=== PATIENT | female | born 1940 | race Caucasian/White ===

== ENCOUNTER 2019-09-02 23:06 | Emergency (ER) | payer OTHER ==
[~2019-09-02] VITALS: Ht 154.9 cm; Wt 111.6 kg
[2019-09-02 23:44] LABS: Basophils # (auto) 0.1 10 ^3/uL (0-0.2); Eosinophils # (auto) 0.2 10 ^3/uL (0-0.8); Hematocrit 49.4 % (36.0-46.0); Lymphocytes # (auto) 2.4 10 ^3/uL (0.4-5.4); Lymphocytes % (auto) 20.7 % (10.0-50.0); Mean Corpuscular Hemoglobin 28.6 pg (28.0-32.0); Mean Corpuscular Hgb Conc. 32.4 g/dL (32.0-36.0); Mean Corpuscular Volume 88.2 fL (80.0-100.0); Monocytes # (auto) 1.1 10 ^3/uL (0-1.3); Monocytes % (auto) 9.5 % (0.0-12.0); Neutrophils # (auto) 7.7 10 ^3/uL (1.6-8.6); Neutrophils % (auto) 66.8 % (37.0-80.0); Platelet Count (auto) 143 10^3/uL (140-450); Red Cell Distribution Width 14.7 % (11.8-14.3); White Blood Cell 11.6 10^3/uL (4.4-10.8)
[2019-09-02] MEDS ORDERED: dilTIAZem 25 MG/5 ML VIAL IV ONE (23:45)
[2019-09-03 00:02] LABS: Potassium 3.2 mmol/L (3.5-5.1)
[2019-09-03 00:03] LABS: Albumin 3.1 g/dL (3.4-5.0); Calcium 8.2 mg/dL (8.5-10.1)
[2019-09-03 00:07] LABS: Bilirubin, Total 0.8 mg/dL (0.2-1.0); Total Protein 7.3 g/dL (6.4-8.2)
[2019-09-03] MEDS ORDERED: POTASSIUM EFFERVESENT TAB 25 MEQ PO ONE (00:15)
[2019-09-03] MEDS ORDERED: InsuLIN REG 1unit/0.01ml Soln (100units/ml) IV ONE (00:30)
[2019-09-03] MEDS ORDERED: METOPROLOL TARTRATE 1MG/1ML-5ML VIAL IV ONE (01:30)
[2019-09-03 01:50] VITALS: BP 141/90
[2019-09-03] MEDS ORDERED: METOPROLOL TARTRATE 25 MG TAB PO ONE (02:15)
== END 2019-09-03 02:14 | disposition home or self-care (01) ==
LOC: ER 23:08
DX: R00.2 Palpitations (principal); R00.0 Tachycardia, unspecified; E87.6 Hypokalemia; E11.65 Type 2 diabetes mellitus with hyperglycemia
CPT/HCPCS: 36415; 71045; 80053; 82962; 83735; 83880; 84443; 84484; 85025; 96374; 96375; 99285; J1815

== ENCOUNTER 2019-11-29 10:42 | Inpatient (IN) | payer OTHER ==
[~2019-11-29] VITALS: Ht 154.9 cm; Wt 99.0 kg
[2019-11-29 11:31] LABS: Basophils # (auto) 0.1 10 ^3/uL (0-0.2); Basophils % (auto) 0.7 % (0.0-2.0); Eosinophils # (auto) 0.1 10 ^3/uL (0-0.8); Eosinophils % (auto) 0.6 % (0.0-7.0); Hematocrit 43.9 % (36.0-46.0); Hemoglobin 14.2 g/dL (12.2-16.2); Lymphocytes # (auto) 0.9 10 ^3/uL (0.4-5.4); Lymphocytes % (auto) 8.3 % (10.0-50.0); Mean Corpuscular Hemoglobin 28.7 pg (28.0-32.0); Mean Corpuscular Hgb Conc. 32.3 g/dL (32.0-36.0); Mean Corpuscular Volume 88.8 fL (80.0-100.0); Monocytes # (auto) 0.8 10 ^3/uL (0-1.3); Monocytes % (auto) 7.4 % (0.0-12.0); Neutrophils # (auto) 8.6 10 ^3/uL (1.6-8.6); Platelet Count (auto) 118 10^3/uL (140-450); Red Blood Cells 4.94 10^6/uL (4.0-5.20); Red Cell Distribution Width 15.1 % (11.8-14.3); White Blood Cell 10.4 10^3/uL (4.4-10.8)
[2019-11-29 11:49] LABS: INR 1.03 (0.9-1.15)
[2019-11-29 11:52] LABS: Albumin 3.1 g/dL (3.4-5.0); Anion Gap 8 (5-15); Blood Urea Nitrogen 25 mg/dL (7-18); Calcium 8.5 mg/dL (8.5-10.1); Carbon Dioxide 23 mmol/L (21-32); Chloride 107 mmol/L (98-107); Glucose 228 mg/dL (74-106); Sodium 138 mmol/L (136-145)
[2019-11-29 11:59] LABS: Alanine Aminotransferase 24 U/L (13-56); Alkaline Phosphatase 138 U/L (45-117); Aspartate Aminotransferase 19 U/L (15-37); BUN/Creatinine Ratio 20.3; Bilirubin, Total 0.8 mg/dL (0.2-1.0); GFR African American 54 mL/min; GFR Non-African American 45 mL/min
[2019-11-29] MEDS ORDERED: IOHEXOL 350 MG/ML 100ML IJ ONE (14:19)
[2019-11-29] MEDS ORDERED: LABETALOL HCL 5 MG/ML 4ML SYRINGE IV PRN (17:30)
[2019-11-29] MEDS ORDERED: DEXTROSE (50%) 50ML SYRG IV PRN (17:30)
[2019-11-29] MEDS ORDERED: NITROGLYCERIN 0.4 MG SL TAB SL PRN (17:30)
[2019-11-29] MEDS: ACCU-CHEK COMFORT CURVE STRIP VI SCH ×2 (19:50→23:47)
[2019-11-29] MEDS: InsuLIN REG 1unit/0.01ml Soln (100units/ml) SC SCH ×2 (19:50→23:53)
[2019-11-30] MEDS: InsuLIN REG 1unit/0.01ml Soln (100units/ml) SC SCH ×5 (04:00→20:00)
[2019-11-30] MEDS: ACCU-CHEK COMFORT CURVE STRIP VI SCH ×5 (04:00→20:00)
[2019-11-30 07:49] LABS: Basophils # (auto) 0.1 10 ^3/uL (0-0.2); Basophils % (auto) 0.7 % (0.0-2.0); Eosinophils # (auto) 0.2 10 ^3/uL (0-0.8); Eosinophils % (auto) 3.2 % (0.0-7.0); Hematocrit 38.3 % (36.0-46.0); Hemoglobin 12.4 g/dL (12.2-16.2); Lymphocytes # (auto) 1.4 10 ^3/uL (0.4-5.4); Mean Corpuscular Hgb Conc. 32.5 g/dL (32.0-36.0); Mean Corpuscular Volume 89.5 fL (80.0-100.0); Monocytes # (auto) 0.8 10 ^3/uL (0-1.3); Monocytes % (auto) 10.7 % (0.0-12.0); Neutrophils % (auto) 66.4 % (37.0-80.0); Platelet Count (auto) 97 10^3/uL (140-450); Red Blood Cells 4.28 10^6/uL (4.0-5.20); Red Cell Distribution Width 14.8 % (11.8-14.3); White Blood Cell 7.5 10^3/uL (4.4-10.8)
[2019-11-30 07:53] LABS: Albumin 2.6 g/dL (3.4-5.0); Potassium 3.8 mmol/L (3.5-5.1)
[2019-11-30 08:00] LABS: BUN/Creatinine Ratio 20.6; Bilirubin, Total 0.9 mg/dL (0.2-1.0); Magnesium 2.2 mg/dL (1.6-2.6); Phosphorus 3.1 mg/dL (2.5-4.90); Total Protein 5.8 g/dL (6.4-8.2)
--- NOTE | 2019-11-30 08:40 | NUR ---
MS admit from ER KNOUSE,ELIESER admitted to tele/MS no SBAR was received. Patient oriented to GEE JASSO,RN primary RN, unit,274 room,B bed, and unit policies regarding patient care and visiting hours. Patient weighed by bedscale and encouraged to call if they need something. All questions and concerns addressed, patient verbalized understanding. Note:
[2019-11-30 10:32] VITALS: BP 164/70
--- NOTE | 2019-11-30 12:38 | NUR ---
Doctor Emmanuel rounding.
[2019-11-30 12:45] VITALS: BP 150/63
[2019-11-30 17:00] VITALS: BP 155/75
[2019-11-30 22:00] VITALS: BP 163/80
--- NOTE | 2019-11-30 22:02 | NUR ---
1900. RREPORT GIVEN ON PATIENT. ASSUMED CARE. PATIENT SEEN IN ROOM. SITTING ON HER BED. DENIES PAIN.NO NOSE BLEED OBSERVED. MONITORING CONTINUES.
[2019-12-01] MEDS: ACCU-CHEK COMFORT CURVE STRIP VI SCH ×3 (00:24→08:26)
--- NOTE | 2019-12-01 01:58 | NUR ---
PATIENT SEEN. FEELS WELL. NO NOSE BLEEDING.
[2019-12-01] MEDS: InsuLIN REG 1unit/0.01ml Soln (100units/ml) SC SCH ×3 (04:16→08:26)
[2019-12-01 05:00] VITALS: BP 130/45
[2019-12-01 07:35] VITALS: BP 156/64
--- NOTE | 2019-12-01 07:50 | NUR ---
OPENING SHIFT NOTE: PATIENT RESTING IN BED, A/OX4. THIS RN RE-ORIENTED PATIENT AND UPDATED ON PLAN OF CARE. RESPIRATIONS EVEN AND UNLABORED EDUCATED ABOUT NEED TO REMOVED OXYGEN PRIOR TO GOING HOME, SO PATIENT WILL NEED TO BE ASSESSED FOR NECESSITY ON DISCHARGE. CALL LIGHT WITHIN REACH, BED ALARM AND FALL PRECAUTIONS IN PLACE. WILL CONTINUE TO MONITOR.
--- NOTE | 2019-12-01 08:34 | NUR ---
ROOM AIR: PATIENT ATE BREAKFAST ON ROOM AIR, TOLERATING WELL, EDUCATED ON ABG AND HOME O2 QUALIFICATIONS.
--- NOTE | 2019-12-01 08:40 | NUR ---
ROOM AIR ABG DRAWN ORDERED. RESULTS REPORTED TO DR. Uli FITCH.
--- NOTE | 2019-12-01 09:20 | NUR ---
MD Uli FITCH ROUNDING. PATIENT STABLE FOR DC. DOES NOT QUALIFY FOR HOME O2. PATIENT VERBALIZED UNDERSTANDING.
--- NOTE | 2019-12-01 11:13 | NUR ---
DISCHARGE: PATIENT DISCHARGED HOME. ALL EDUCATION GIVEN, PATIENT VERBALIZED UNDERSTANDING INSTRUCTIONS. IV REMOVED, MANUAL PRESSURE APPLIED. PATIENT TAKEN DOWN TO PRIVATE AUTO VIA WHEELCHAIR WITH ALL BELONGINGS.
== END 2019-12-01 11:30 | disposition home or self-care (01) | DRG 151 ==
LOC: ER 10:42 → OVERFLOW 10:43 → WEST WING 11-30 08:25
PROVIDERS: ATTEND Family Medicine
DX: R04.0 Epistaxis (principal); R60.9 Edema, unspecified; D69.6 Thrombocytopenia, unspecified; E11.9 Type 2 diabetes mellitus without complications; I10 Essential (primary) hypertension; I25.10 Atherosclerotic heart disease of native coronary artery without angina pectoris; Z96.659 Presence of unspecified artificial knee joint; H26.9 Unspecified cataract; Z79.82 Long term (current) use of aspirin; Z90.710 Acquired absence of both cervix and uterus; Z79.84 Long term (current) use of oral hypoglycemic drugs
CPT/HCPCS: 36415; 36600; 71046; 71275; 80053; 82805; 82962; 83036; 83735; 83880; 84100; 84484; 85025; 85379; 85610; 85730; 93005; 93970; G0378; J1815; J3490

== ENCOUNTER 2021-06-25 15:05 | Emergency (ER) | payer OTHER ==
[~2021-06-25] VITALS: Ht 154.9 cm; Wt 99.8 kg
[2021-06-25 15:56] LABS: Basophils # (auto) 0.1 10 ^3/uL (0-0.2); Basophils % (auto) 1.1 % (0.0-2.0); Eosinophils # (auto) 0.1 10 ^3/uL (0-0.8); Eosinophils % (auto) 1.1 % (0.0-7.0); Hematocrit 50.3 % (36.0-46.0); Hemoglobin 16.4 g/dL (12.2-16.2); Lymphocytes # (auto) 2.1 10 ^3/uL (0.4-5.4); Lymphocytes % (auto) 17.5 % (10.0-50.0); Mean Corpuscular Hemoglobin 28.8 pg (28.0-32.0); Mean Corpuscular Hgb Conc. 32.6 g/dL (32.0-36.0); Mean Corpuscular Volume 88.5 fL (80.0-100.0); Monocytes # (auto) 0.9 10 ^3/uL (0-1.3); Monocytes % (auto) 7.7 % (0.0-12.0); Neutrophils # (auto) 8.5 10 ^3/uL (1.6-8.6); Neutrophils % (auto) 72.6 % (37.0-80.0); Red Blood Cells 5.69 10^6/uL (4.0-5.20); Red Cell Distribution Width 15.2 % (11.8-14.3); White Blood Cell 11.7 10^3/uL (4.4-10.8)
[2021-06-25] MEDS ORDERED: dilTIAZem 25 MG/5 ML VIAL IV ONE (16:00)
[2021-06-25] MEDS ORDERED: ASPirin 81 mg TAB PO ONE (16:00)
[2021-06-25 16:22] LABS: Calcium 8.4 mg/dL (8.5-10.1); Potassium 4.9 mmol/L (3.5-5.1)
[2021-06-25 16:32] LABS: INR 1.16 (0.9-1.15); Partial Thromboplastin Time 25.7 sec (23.6-33.0)
[2021-06-25 16:33] LABS: BUN/Creatinine Ratio 13.5; Bilirubin, Total 1.1 mg/dL (0.2-1.0); Total Protein 7.1 g/dL (6.4-8.2)
[2021-06-25] MEDS ORDERED: FUROSEMIDE 20 MG/2 ML VIAL IV ONE (17:30)
[2021-06-25] MEDS ORDERED: IOHEXOL 350 MG/ML 100ML IJ ONE (17:31)
[2021-06-25] MEDS ORDERED: SODIUM CHLORIDE 0.9% 500 ML IV ONE (17:45)
[2021-06-25 18:33] LABS: Urine Bacteria MOD /hpf (None Seen); Urine Blood Negative /uL (Negative); Urine Mucus FEW (None Seen); Urine Specific Gravity 1.014 (1.001-1.035); Urine WBC 2 /hpf (0 - 5)
[2021-06-25 20:40] VITALS: BP 128/72
== END 2021-06-25 20:50 | disposition home or self-care (01) ==
LOC: ER 15:05
DX: I47.1 Supraventricular tachycardia (principal); I11.0 Hypertensive heart disease with heart failure; I50.9 Heart failure, unspecified; Z20.822 Contact with and (suspected) exposure to COVID-19
CPT/HCPCS: 36415; 71045; 71275; 80053; 81001; 83880; 84484; 85025; 85379; 85610; 85730; 87426; 93005; 96374; 96375; 99285; J1940; J7040; Q9967

== ENCOUNTER 2021-09-08 21:58 | Emergency (ER) | payer OTHER ==
[~2021-09-08] VITALS: Ht 157.5 cm; Wt 99.8 kg
[2021-09-08 23:06] LABS: Basophils # (auto) 0 10 ^3/uL (0-0.2); Basophils % (auto) 0.5 % (0.0-2.0); Eosinophils # (auto) 0.1 10 ^3/uL (0-0.8); Eosinophils % (auto) 1.3 % (0.0-7.0); Hematocrit 45.8 % (36.0-46.0); Hemoglobin 15.4 g/dL (12.2-16.2); Lymphocytes # (auto) 1.4 10 ^3/uL (0.4-5.4); Lymphocytes % (auto) 19.3 % (10.0-50.0); Mean Corpuscular Hemoglobin 28.7 pg (28.0-32.0); Mean Corpuscular Hgb Conc. 33.7 g/dL (32.0-36.0); Mean Corpuscular Volume 85.1 fL (80.0-100.0); Monocytes # (auto) 0.7 10 ^3/uL (0-1.3); Monocytes % (auto) 9.2 % (0.0-12.0); Neutrophils % (auto) 69.7 % (37.0-80.0); Nucleated Red Blood Cells % 0.1 %; Red Blood Cells 5.38 10^6/uL (4.0-5.20); Red Cell Distribution Width 14.5 % (11.8-14.3); White Blood Cell 7.1 10^3/uL (4.4-10.8)
[2021-09-08 23:35] LABS: Albumin 2.9 g/dL (3.4-5.0); Calcium 8.3 mg/dL (8.5-10.1); Potassium 4.1 mmol/L (3.5-5.1)
[2021-09-08 23:40] LABS: BUN/Creatinine Ratio 15.5; Bilirubin, Total 0.6 mg/dL (0.2-1.0); Total Protein 6.5 g/dL (6.4-8.2)
[2021-09-09] MEDS ORDERED: IOHEXOL 350 MG/ML 100ML IJ ONE (02:14)
[2021-09-09] MEDS ORDERED: AZITHROMYCIN 500MG/ 250ML 250 ML IV ONE (11:30)
[2021-09-09] MEDS ORDERED: ZINC SULFATE 220mg CAP or TAB PO ONE (11:30)
[2021-09-09] MEDS ORDERED: methylPREDNISolone SOD SUCC 125 MG/2 ML VL IV ONE (11:30)
[2021-09-09] MEDS ORDERED: ASCORBIC ACID 500 MG TAB PO ONE (11:30)
[2021-09-09] MEDS ORDERED: CHOLECALCIFEROL (VITD3) 2,000 UNIT CAP/TAB PO ONE (11:30)
[2021-09-09] MEDS ORDERED: cefTRIAXone 1GM/50ML D5W 50 ML IV ONE (11:30)
[2021-09-09] MEDS ORDERED: ONDANSETRON HCL 4 MG/2 ML VIAL IV ONE (13:00)
[2021-09-09 17:18] VITALS: BP 159/76
== END 2021-09-09 17:45 | disposition short-term general hospital (02) ==
LOC: ER 21:58 → EDUNIT# 21:58 → ER 09-09 17:45
DX: U07.1 COVID-19 (principal); R06.03 Acute respiratory distress; R09.02 Hypoxemia; I10 Essential (primary) hypertension; E11.9 Type 2 diabetes mellitus without complications
CPT/HCPCS: 36415; 71045; 71275; 80053; 83880; 84484; 85025; 85379; 87426; 93005; 96365; 96366; 96367; 96375; 99285; J0456; J0696; J2405; J2930; Q9967

== ENCOUNTER 2022-06-01 08:52 | Emergency (ER) | payer OTHER ==
[~2022-06-01] VITALS: Ht 154.9 cm; Wt 120.3 kg
[2022-06-01 09:40] LABS: INR 1.02 (0.9-1.15); Partial Thromboplastin Time 25.7 sec (24.6-33.4)
[2022-06-01 09:47] LABS: Basophils # (auto) 0.1 10 ^3/uL (0-0.2); Basophils % (auto) 0.8 % (0.0-2.0); Eosinophils # (auto) 0.3 10 ^3/uL (0-0.8); Eosinophils % (auto) 3.4 % (0.0-7.0); Hematocrit 49.3 % (36.0-46.0); Hemoglobin 15.6 g/dL (12.2-16.2); Lymphocytes # (auto) 1.8 10 ^3/uL (0.4-5.4); Lymphocytes % (auto) 19.1 % (10.0-50.0); Mean Corpuscular Hemoglobin 28.8 pg (28.0-32.0); Mean Corpuscular Hgb Conc. 31.8 g/dL (32.0-36.0); Mean Corpuscular Volume 90.6 fL (80.0-100.0); Monocytes # (auto) 0.8 10 ^3/uL (0-1.3); Monocytes % (auto) 8.6 % (0.0-12.0); Neutrophils # (auto) 6.6 10 ^3/uL (1.6-8.6); Neutrophils % (auto) 68.1 % (37.0-80.0); Nucleated Red Blood Cells % 0.1 %; Red Blood Cells 5.43 10^6/uL (4.0-5.20); Red Cell Distribution Width 15.5 % (11.8-14.3); White Blood Cell 9.7 10^3/uL (4.4-10.8)
[2022-06-01] MEDS ORDERED: ASPirin 325 MG TAB PO ONE (11:30)
[2022-06-01 14:35] LABS: Magnesium 2.3 mg/dL (1.6-2.6)
[2022-06-01 14:45] LABS: Bilirubin, Total 0.8 mg/dL (0.2-1.0); Potassium 3.6 mmol/L (3.5-5.1); Total Protein 6.5 g/dL (6.4-8.2)
[2022-06-01 14:46] LABS: Calcium 8.6 mg/dL (8.5-10.1)
[2022-06-01 14:47] LABS: Albumin 3.3 g/dL (3.4-5.0)
[2022-06-01 20:58] VITALS: BP 175/74
== END 2022-06-01 21:08 | disposition short-term general hospital (02) ==
LOC: ER 08:52
DX: I63.9 Cerebral infarction, unspecified (principal); I10 Essential (primary) hypertension; E11.9 Type 2 diabetes mellitus without complications; Z90.710 Acquired absence of both cervix and uterus; Z20.822 Contact with and (suspected) exposure to COVID-19
CPT/HCPCS: 36415; 70450; 70496; 71045; 80053; 82962; 83735; 83880; 84484; 85025; 85610; 85730; 87426; 93005; 99285; Q9967

== ENCOUNTER 2022-07-25 10:00 | Inpatient (IN) | payer OTHER ==
[~2022-07-25] VITALS: Ht 154.9 cm; Wt 127.2 kg
[~2022-07-25 10:00] MED LIST: ATEN50TA PO; ATOR40TA52 PO; AZIT250T8 PO; CAR125T PO; CLOP75TA70 PO; DILT60TA2 PO; FUR20T PO; GABA300C10 PO; INSREG3 SC; LOSA-39 PO; METH4PAK PO; MONT-8 PO; POTA-264 PO
[2022-07-25] MEDS ORDERED: ALBUTEROL SULF 2.5 MG/0.5ML(0.5%) NEB SOLN NEB ONE (10:45)
[2022-07-25] MEDS ORDERED: IPRATROPIUM BROM 0.5 MG/2.5ML INH SOL NEB ONE (10:45)
[2022-07-25] MEDS ORDERED: FUROSEMIDE 100 MG/10ML VIAL IV ONE (11:15)
[2022-07-25 11:24] LABS: INR 1.1 (0.9-1.15); Partial Thromboplastin Time 22.1 sec (24.6-33.4)
[2022-07-25 11:27] LABS: Mean Corpuscular Hgb Conc. 31.9 g/dL (32.0-36.0)
[2022-07-25 11:29] LABS: Hematocrit 52.4 % (36.0-46.0); Hemoglobin 16.7 g/dL (12.2-16.2); Mean Corpuscular Hemoglobin 27.8 pg (28.0-32.0); Mean Corpuscular Volume 87.1 fL (80.0-100.0); Red Blood Cells 6.02 10^6/uL (4.0-5.20)
[2022-07-25 11:40] LABS: Calcium 8.8 mg/dL (8.5-10.1); Potassium 4.9 mmol/L (3.5-5.1)
[2022-07-25 11:43] LABS: BUN/Creatinine Ratio 41.1 (10.0-20.0); Total Protein 6.2 g/dL (6.4-8.2)
[2022-07-25 11:48] LABS: White Blood Cell 32.3 10^3/uL (4.4-10.8)
[2022-07-25 11:49] LABS: Band Neutrophils % (manual) 0; Basophils % (manual) 0 (0.0-2.0); Blast Cells 0; Eosinophils % (manual) 0 (0-7); Metamyelocytes % 0; Myelocytes % 0; Promyelocytes % 0; Reactive Lymphocytes 0
[2022-07-25 11:59] LABS: Lymphocytes % (manual) 4 (10.0-50.0); Monocytes % (manual) 8 (0-12)
[2022-07-25] MEDS ORDERED: cefTRIAXone 1GM/50ML D5W 50 ML IV ONE (12:00)
[2022-07-25] MEDS ORDERED: HYDROcodone-ACET 10/325MG TAB PO ONE (12:00)
[2022-07-25] MEDS ORDERED: InsuLIN REG 1unit/0.01ml Soln (100units/ml) IV ONE (12:15)
[2022-07-25] MEDS ORDERED: InsuLIN REG 1unit/0.01ml Soln (100units/ml) SC ONE (12:30)
[2022-07-25 15:26] LABS: Lactic Acid w/Reflex 2.2 mmol/L (0.4-2.0)
[2022-07-25] MEDS ORDERED: MORPHINE SULFATE INJ 2 MG/ml SYRG IV PRN (17:45)
[2022-07-25] MEDS ORDERED: ACETAMINOPHEN 325 MG TAB PO PRN (17:45)
[2022-07-25] MEDS ORDERED: NITROGLYCERIN 0.4 MG SL TAB SL PRN (17:45)
[2022-07-25] MEDS ORDERED: ONDANSETRON HCL 4 MG/2 ML VIAL IV PRN (17:45)
[2022-07-25] MEDS ORDERED: DOCUSATE SOD 100 MG CAP PO PRN (17:45)
[2022-07-25] MEDS: HYDROcodone-ACET 5/325MG TAB PO PRN ×2 (17:51→21:59)
[2022-07-25] MEDS ORDERED: DEXTROSE (50%) 50ML SYRG IV PRN (18:00)
[2022-07-25] MEDS: IPRATROPIUM BROM 0.5 MG/2.5ML INH SOL NEB PRN (19:35)
[2022-07-25] MEDS: ALBUTEROL SULF 2.5 MG/0.5ML(0.5%) NEB SOLN NEB PRN (19:35)
[2022-07-25 21:33] VITALS: BP 155/63
[2022-07-25] MEDS: SODIUM CHLOR 0.9% PF (SALINE LOCK) 10ML VIAL/SYR IV SCH (21:49)
[2022-07-25] MEDS: ATORVASTATIN 20 MG TAB PO SCH (21:52)
[2022-07-25] MEDS: methylPREDNISolone SOD SUCC 40 MG/ML VL IV SCH (21:52)
[2022-07-25] MEDS: dilTIAZem HCL 60 MG TAB PO SCH (21:52)
[2022-07-25] MEDS: InsuLIN REG 1unit/0.01ml Soln (100units/ml) SC SCH (21:54)
[2022-07-25] MEDS: ACCU-CHEK COMFORT CURVE STRIP VI SCH (21:55)
[2022-07-25] MEDS ORDERED: CARVEDILOL 12.5 MG TAB PO SCH (22:00)
[2022-07-26] MEDS ORDERED: FUROSEMIDE 20 MG/2 ML VIAL IV SCH (06:00)
[2022-07-26] MEDS: ALBUTEROL SULF 2.5 MG/0.5ML(0.5%) NEB SOLN NEB PRN ×4 (06:06→18:34)
[2022-07-26] MEDS: ACCU-CHEK COMFORT CURVE STRIP VI SCH ×4 (06:15→23:02)
[2022-07-26] MEDS: SODIUM CHLOR 0.9% PF (SALINE LOCK) 10ML VIAL/SYR IV SCH ×3 (06:15→23:00)
[2022-07-26] MEDS: IPRATROPIUM BROM 0.5 MG/2.5ML INH SOL NEB PRN ×4 (06:16→18:34)
[2022-07-26 06:25] LABS: Potassium 4.7 mmol/L (3.5-5.1)
[2022-07-26 06:32] LABS: Hemoglobin 15.7 g/dL (12.2-16.2)
[2022-07-26 06:36] LABS: Albumin 2.3 g/dL (3.4-5.0); BUN/Creatinine Ratio 39.9 (10.0-20.0); Calcium 8.3 mg/dL (8.5-10.1); Total Protein 5.6 g/dL (6.4-8.2)
[2022-07-26] MEDS: InsuLIN REG 1unit/0.01ml Soln (100units/ml) SC SCH ×5 (06:37→23:07)
[2022-07-26 06:38] LABS: Hematocrit 47.4 % (36.0-46.0); Mean Corpuscular Hemoglobin 28.1 pg (28.0-32.0); Red Blood Cells 5.58 10^6/uL (4.0-5.20); Red Cell Distribution Width 14.5 % (11.8-14.3)
[2022-07-26 06:42] LABS: White Blood Cell 31.4 10^3/uL (4.4-10.8)
[2022-07-26 06:43] LABS: Basophils % (manual) 0 (0.0-2.0); Blast Cells 0; Eosinophils % (manual) 0 (0-7); Metamyelocytes % 0; Myelocytes % 0; Promyelocytes % 0; Reactive Lymphocytes 0
[2022-07-26] MEDS: HYDROcodone-ACET 5/325MG TAB PO PRN ×4 (07:05→23:29)
[2022-07-26 08:55] LABS: Band Neutrophils % (manual) 10; Lymphocytes % (manual) 2 (10.0-50.0); Monocytes % (manual) 6 (0-12)
[2022-07-26] MEDS: cefTRIAXone 1GM/50ML D5W 50 ML IV SCH (09:55)
[2022-07-26] MEDS: AZITHROMYCIN 500MG/ 250ML 250 ML IV SCH (09:55)
[2022-07-26] MEDS: GABAPENTIN 300 MG CAP PO SCH (09:57)
[2022-07-26] MEDS: CLOPIDOGREL BISULFATE 75 MG TAB PO SCH (09:58)
[2022-07-26] MEDS ORDERED: FUROSEMIDE 20 MG TAB PO SCH (10:00)
[2022-07-26] MEDS ORDERED: PANTOPRAZOLE 40 MG/10 ML VIAL INJ IV SCH (10:00)
[2022-07-26] MEDS ORDERED: LOSARTAN POTASSIUM 50 MG TAB PO SCH (10:00)
[2022-07-26] MEDS ORDERED: ATENOLOL 50 MG TAB PO SCH (10:00)
[2022-07-26] MEDS: dilTIAZem HCL 60 MG TAB PO SCH ×2 (10:04→23:02)
[2022-07-26] MEDS: methylPREDNISolone SOD SUCC 40 MG/ML VL IV SCH (10:07)
[2022-07-26] MEDS ORDERED: NYSTATIN (MOUTH-THROAT) 500,000 UNITS/5 ML SUSP MT ONE (14:00)
[2022-07-26] MEDS: NYSTATIN (MOUTH-THROAT) 500,000 UNITS/5 ML SUSP MT SCH ×2 (17:19→23:00)
[2022-07-26] MEDS: CARVEDILOL 3.125 MG TAB PO SCH (23:01)
[2022-07-26] MEDS: ATORVASTATIN 20 MG TAB PO SCH (23:02)
[2022-07-27 05:00] VITALS: BP 118/73
[2022-07-27] MEDS: SODIUM CHLOR 0.9% PF (SALINE LOCK) 10ML VIAL/SYR IV SCH ×3 (05:16→21:17)
[2022-07-27] MEDS: NYSTATIN (MOUTH-THROAT) 500,000 UNITS/5 ML SUSP MT SCH ×4 (05:16→21:15)
[2022-07-27] MEDS: ACCU-CHEK COMFORT CURVE STRIP VI SCH ×4 (06:26→21:17)
[2022-07-27] MEDS: InsuLIN REG 1unit/0.01ml Soln (100units/ml) SC SCH ×4 (06:27→21:21)
[2022-07-27] MEDS: HYDROcodone-ACET 5/325MG TAB PO PRN ×3 (06:45→19:43)
[2022-07-27 06:49] LABS: Calcium 8.4 mg/dL (8.5-10.1); Potassium 4.7 mmol/L (3.5-5.1)
[2022-07-27 06:51] LABS: BUN/Creatinine Ratio 37.8 (10.0-20.0)
[2022-07-27 07:13] LABS: Basophils # (auto) 0.1 10 ^3/uL (0-0.2); Basophils % (auto) 0.3 % (0.0-2.0); Eosinophils # (auto) 0 10 ^3/uL (0-0.8); Eosinophils % (auto) 0.1 % (0.0-7.0); Hematocrit 43.8 % (36.0-46.0); Hemoglobin 14.9 g/dL (12.2-16.2); Lymphocytes # (auto) 0.9 10 ^3/uL (0.4-5.4); Lymphocytes % (auto) 3.4 % (10.0-50.0); Mean Corpuscular Hemoglobin 28.5 pg (28.0-32.0); Mean Corpuscular Hgb Conc. 33.9 g/dL (32.0-36.0); Monocytes # (auto) 1.5 10 ^3/uL (0-1.3); Monocytes % (auto) 5.6 % (0.0-12.0); Neutrophils # (auto) 23.6 10 ^3/uL (1.6-8.6); Neutrophils % (auto) 90.6 % (37.0-80.0); Red Blood Cells 5.21 10^6/uL (4.0-5.20); Red Cell Distribution Width 14.4 % (11.8-14.3)
[2022-07-27 09:00] VITALS: BP 128/64
[2022-07-27] MEDS ORDERED: LOSARTAN POTASSIUM 50 MG TAB PO SCH (10:00)
[2022-07-27] MEDS: CARVEDILOL 3.125 MG TAB PO SCH ×2 (10:06→21:17)
[2022-07-27] MEDS: GABAPENTIN 300 MG CAP PO SCH (10:07)
[2022-07-27] MEDS: CLOPIDOGREL BISULFATE 75 MG TAB PO SCH (10:08)
[2022-07-27] MEDS: dilTIAZem HCL 60 MG TAB PO SCH ×2 (10:08→21:25)
[2022-07-27] MEDS: AZITHROMYCIN 500MG/ 250ML 250 ML IV SCH (10:09)
[2022-07-27] MEDS: cefTRIAXone 1GM/50ML D5W 50 ML IV SCH (10:10)
[2022-07-27] MEDS: FUROSEMIDE 20 MG/2 ML VIAL IV SCH (10:12)
[2022-07-27 11:51] LABS: Urine Bacteria FEW /hpf (None Seen); Urine Blood 3+ /uL (Negative); Urine Mucus FEW (None Seen); Urine Specific Gravity 1.015 (1.001-1.035); Urine WBC 7 /hpf (0 - 5)
[2022-07-27 13:00] VITALS: BP 113/72
[2022-07-27 17:00] VITALS: BP 136/67
[2022-07-27 20:00] VITALS: BP 123/74
[2022-07-27] MEDS: ATORVASTATIN 20 MG TAB PO SCH (21:16)
[2022-07-27] MEDS: INSULIN LANTUS (GLARGINE) 1 /0.01ml (100units/ml) SC SCH (21:20)
[2022-07-27 22:00] VITALS: BP 112/59
[2022-07-28] MEDS: HYDROcodone-ACET 5/325MG TAB PO PRN ×5 (00:07→21:04)
[2022-07-28 05:00] VITALS: BP 131/69
[2022-07-28] MEDS: NYSTATIN (MOUTH-THROAT) 500,000 UNITS/5 ML SUSP MT SCH ×4 (05:14→21:26)
[2022-07-28] MEDS: SODIUM CHLOR 0.9% PF (SALINE LOCK) 10ML VIAL/SYR IV SCH ×3 (05:14→21:29)
[2022-07-28 06:06] LABS: Basophils # (auto) 0.1 10 ^3/uL (0-0.2); Basophils % (auto) 0.3 % (0.0-2.0); Eosinophils # (auto) 0.1 10 ^3/uL (0-0.8); Eosinophils % (auto) 0.4 % (0.0-7.0); Hematocrit 46.2 % (36.0-46.0); Hemoglobin 15.7 g/dL (12.2-16.2); Lymphocytes # (auto) 1.6 10 ^3/uL (0.4-5.4); Lymphocytes % (auto) 6.7 % (10.0-50.0); Mean Corpuscular Hemoglobin 28.6 pg (28.0-32.0); Mean Corpuscular Volume 84.1 fL (80.0-100.0); Monocytes # (auto) 2.4 10 ^3/uL (0-1.3); Monocytes % (auto) 9.8 % (0.0-12.0); Neutrophils # (auto) 20.2 10 ^3/uL (1.6-8.6); Neutrophils % (auto) 82.8 % (37.0-80.0); Nucleated Red Blood Cells % 0.1 %; Red Blood Cells 5.49 10^6/uL (4.0-5.20); Red Cell Distribution Width 14.9 % (11.8-14.3); White Blood Cell 24.3 10^3/uL (4.4-10.8)
[2022-07-28 06:19] LABS: Calcium 8.1 mg/dL (8.5-10.1); Potassium 4.6 mmol/L (3.5-5.1)
[2022-07-28] MEDS: ACCU-CHEK COMFORT CURVE STRIP VI SCH ×4 (06:19→21:30)
[2022-07-28 06:21] LABS: BUN/Creatinine Ratio 33.6 (10.0-20.0)
[2022-07-28] MEDS: InsuLIN REG 1unit/0.01ml Soln (100units/ml) SC SCH ×4 (06:24→21:37)
[2022-07-28 09:00] VITALS: BP 121/73
[2022-07-28] MEDS: cefTRIAXone 1GM/50ML D5W 50 ML IV SCH (09:05)
[2022-07-28] MEDS: dilTIAZem HCL 60 MG TAB PO SCH ×2 (09:11→21:27)
[2022-07-28] MEDS: CARVEDILOL 3.125 MG TAB PO SCH (09:12)
[2022-07-28] MEDS: CLOPIDOGREL BISULFATE 75 MG TAB PO SCH (09:12)
[2022-07-28] MEDS: GABAPENTIN 300 MG CAP PO SCH (09:12)
[2022-07-28] MEDS: FUROSEMIDE 20 MG/2 ML VIAL IV SCH (09:13)
[2022-07-28] MEDS: AZITHROMYCIN 500MG/ 250ML 250 ML IV SCH (10:07)
[2022-07-28] MEDS ORDERED: FUROSEMIDE 20 MG/2 ML VIAL IV ONE (10:30)
[2022-07-28 13:00] VITALS: BP 115/65
[2022-07-28 17:00] VITALS: BP 122/67
[2022-07-28 20:00] VITALS: BP 130/83
[2022-07-28] MEDS: ATORVASTATIN 20 MG TAB PO SCH (21:26)
[2022-07-28] MEDS: INSULIN LANTUS (GLARGINE) 1 /0.01ml (100units/ml) SC SCH (21:36)
[2022-07-28 22:00] VITALS: BP 130/83
[2022-07-29] VITALS (8 sets, daily range): BP systolic 117–153; BP diastolic 68–89
[2022-07-29] MEDS: HYDROcodone-ACET 5/325MG TAB PO PRN ×4 (01:22→20:45)
[2022-07-29] MEDS: SODIUM CHLOR 0.9% PF (SALINE LOCK) 10ML VIAL/SYR IV SCH ×3 (05:13→21:26)
[2022-07-29] MEDS: NYSTATIN (MOUTH-THROAT) 500,000 UNITS/5 ML SUSP MT SCH ×4 (05:14→21:27)
[2022-07-29 06:11] LABS: Hematocrit 47.1 % (36.0-46.0); Hemoglobin 15.9 g/dL (12.2-16.2); Mean Corpuscular Hemoglobin 28.6 pg (28.0-32.0); Mean Corpuscular Hgb Conc. 33.8 g/dL (32.0-36.0); Mean Corpuscular Volume 84.8 fL (80.0-100.0); Red Blood Cells 5.55 10^6/uL (4.0-5.20); Red Cell Distribution Width 14.5 % (11.8-14.3)
[2022-07-29 06:25] LABS: BUN/Creatinine Ratio 34.2 (10.0-20.0); Calcium 8.4 mg/dL (8.5-10.1)
[2022-07-29] MEDS: ACCU-CHEK COMFORT CURVE STRIP VI SCH ×4 (06:25→21:32)
[2022-07-29] MEDS: InsuLIN REG 1unit/0.01ml Soln (100units/ml) SC SCH ×6 (06:27→21:31)
[2022-07-29 06:48] LABS: White Blood Cell 30.8 10^3/uL (4.4-10.8)
[2022-07-29 06:49] LABS: Basophils % (manual) 0 (0.0-2.0); Blast Cells 0; Metamyelocytes % 0; Myelocytes % 0; Promyelocytes % 0; Reactive Lymphocytes 0
[2022-07-29] MEDS: CLOPIDOGREL BISULFATE 75 MG TAB PO SCH (09:01)
[2022-07-29 09:02] LABS: Band Neutrophils % (manual) 3; Eosinophils % (manual) 1 (0-7); Lymphocytes % (manual) 6 (10.0-50.0); Monocytes % (manual) 9 (0-12)
[2022-07-29] MEDS: GABAPENTIN 300 MG CAP PO SCH (09:02)
[2022-07-29] MEDS: dilTIAZem HCL 60 MG TAB PO SCH ×2 (09:02→21:30)
[2022-07-29] MEDS: FUROSEMIDE 40 MG/4 ML VIAL IV SCH (09:03)
[2022-07-29] MEDS: AZITHROMYCIN 500MG/ 250ML 250 ML IV SCH (09:04)
[2022-07-29] MEDS: DOXYCYCLINE 100MG/250ML 250 ML IV SCH ×2 (13:10→21:27)
[2022-07-29] MEDS: INSULIN LANTUS (GLARGINE) 1 /0.01ml (100units/ml) SC SCH (21:32)
[2022-07-29] MEDS: ATORVASTATIN 20 MG TAB PO SCH (21:33)
[2022-07-30] VITALS (7 sets, daily range): BP systolic 118–142; BP diastolic 68–86
[2022-07-30] MEDS: HYDROcodone-ACET 5/325MG TAB PO PRN ×3 (03:53→19:55)
[2022-07-30] MEDS: SODIUM CHLOR 0.9% PF (SALINE LOCK) 10ML VIAL/SYR IV SCH ×3 (05:28→21:33)
[2022-07-30] MEDS: NYSTATIN (MOUTH-THROAT) 500,000 UNITS/5 ML SUSP MT SCH ×4 (05:28→21:28)
[2022-07-30 05:53] LABS: Mean Corpuscular Hemoglobin 28.6 pg (28.0-32.0)
[2022-07-30 05:56] LABS: Hematocrit 45.6 % (36.0-46.0); Hemoglobin 15.2 g/dL (12.2-16.2); Mean Corpuscular Hgb Conc. 33.2 g/dL (32.0-36.0); Mean Corpuscular Volume 85.9 fL (80.0-100.0); Red Blood Cells 5.31 10^6/uL (4.0-5.20); Red Cell Distribution Width 14.6 % (11.8-14.3)
[2022-07-30 06:05] LABS: White Blood Cell 33.9 10^3/uL (4.4-10.8)
[2022-07-30 06:06] LABS: Basophils % (manual) 0 (0.0-2.0); Blast Cells 0; Metamyelocytes % 0; Myelocytes % 0; Promyelocytes % 0; Reactive Lymphocytes 0
[2022-07-30 06:10] LABS: BUN/Creatinine Ratio 31.3 (10.0-20.0); Calcium 7.9 mg/dL (8.5-10.1); Potassium 4.1 mmol/L (3.5-5.1)
[2022-07-30] MEDS: ACCU-CHEK COMFORT CURVE STRIP VI SCH ×4 (06:12→21:31)
[2022-07-30] MEDS: InsuLIN REG 1unit/0.01ml Soln (100units/ml) SC SCH ×4 (06:24→21:32)
[2022-07-30] MEDS: DOXYCYCLINE 100MG/250ML 250 ML IV SCH (08:13)
[2022-07-30 08:25] LABS: Band Neutrophils % (manual) 1; Eosinophils % (manual) 1 (0-7); Lymphocytes % (manual) 10 (10.0-50.0); Monocytes % (manual) 2 (0-12)
[2022-07-30] MEDS: GABAPENTIN 300 MG CAP PO SCH (08:28)
[2022-07-30] MEDS: dilTIAZem HCL 60 MG TAB PO SCH ×2 (08:28→21:28)
[2022-07-30] MEDS: FUROSEMIDE 40 MG/4 ML VIAL IV SCH (08:28)
[2022-07-30] MEDS: CLOPIDOGREL BISULFATE 75 MG TAB PO SCH (08:29)
[2022-07-30] MEDS ORDERED: VANCOMYCIN PER PHARMACY 0 MG IV SCH (11:15)
[2022-07-30] MEDS ORDERED: MEROPENEM 1GM IVPB 100 ML IV ONE (12:00)
[2022-07-30] MEDS: VANCOMYCIN 1GM/250ML 250 ML IV SCH (14:12)
[2022-07-30] MEDS: SODIUM CHLORIDE 0.9% 1,000 ML IV SCH (14:19)
[2022-07-30] MEDS: MEROPENEM 1GM IVPB 100 ML IV SCH (19:54)
[2022-07-30] MEDS ORDERED: MEROPENEM 1GM IVPB 100 ML IV SCH (20:00)
[2022-07-30] MEDS: ATORVASTATIN 20 MG TAB PO SCH (21:27)
[2022-07-30] MEDS: INSULIN LANTUS (GLARGINE) 1 /0.01ml (100units/ml) SC SCH (21:32)
[2022-07-31] VITALS (7 sets, daily range): BP systolic 115–142; BP diastolic 67–87
[2022-07-31 05:57] LABS: Hematocrit 42.8 % (36.0-46.0); Mean Corpuscular Hgb Conc. 35.1 g/dL (32.0-36.0); Mean Corpuscular Volume 82.5 fL (80.0-100.0); Red Blood Cells 5.19 10^6/uL (4.0-5.20); Red Cell Distribution Width 14.4 % (11.8-14.3)
[2022-07-31 06:06] LABS: Potassium 3.8 mmol/L (3.5-5.1)
[2022-07-31 06:10] LABS: BUN/Creatinine Ratio 33.3 (10.0-20.0)
[2022-07-31] MEDS: NYSTATIN (MOUTH-THROAT) 500,000 UNITS/5 ML SUSP MT SCH ×4 (06:18→21:58)
[2022-07-31] MEDS: VANCOMYCIN 1GM/250ML 250 ML IV SCH (06:19)
[2022-07-31] MEDS: SODIUM CHLOR 0.9% PF (SALINE LOCK) 10ML VIAL/SYR IV SCH ×3 (06:20→21:58)
[2022-07-31 06:21] LABS: White Blood Cell 34.4 10^3/uL (4.4-10.8)
[2022-07-31] MEDS: ACCU-CHEK COMFORT CURVE STRIP VI SCH ×4 (06:21→21:59)
[2022-07-31 06:23] LABS: Basophils % (manual) 0 (0.0-2.0); Blast Cells 0; Eosinophils % (manual) 0 (0-7); Myelocytes % 0; Promyelocytes % 0; Reactive Lymphocytes 0
[2022-07-31] MEDS: InsuLIN REG 1unit/0.01ml Soln (100units/ml) SC SCH ×4 (06:27→22:09)
[2022-07-31] MEDS: SODIUM CHLORIDE 0.9% 1,000 ML IV SCH (07:15)
[2022-07-31] MEDS: HYDROcodone-ACET 5/325MG TAB PO PRN ×2 (08:24→22:21)
[2022-07-31] MEDS: GABAPENTIN 300 MG CAP PO SCH (08:25)
[2022-07-31] MEDS: dilTIAZem HCL 60 MG TAB PO SCH ×2 (08:25→21:59)
[2022-07-31] MEDS: CLOPIDOGREL BISULFATE 75 MG TAB PO SCH (08:25)
[2022-07-31 08:27] LABS: Band Neutrophils % (manual) 7; Lymphocytes % (manual) 5 (10.0-50.0); Metamyelocytes % 2; Monocytes % (manual) 10 (0-12)
[2022-07-31] MEDS: MEROPENEM 1GM IVPB 100 ML IV SCH ×2 (09:23→21:58)
[2022-07-31] MEDS: ALBUTEROL SULF 2.5 MG/0.5ML(0.5%) NEB SOLN NEB PRN (13:44)
[2022-07-31] MEDS: IPRATROPIUM BROM 0.5 MG/2.5ML INH SOL NEB PRN (13:44)
[2022-07-31] MEDS: ALBUTEROL SULF 2.5 MG/0.5ML(0.5%) NEB SOLN NEB SCH (18:40)
[2022-07-31] MEDS: IPRATROPIUM BROM 0.5 MG/2.5ML INH SOL NEB SCH (18:40)
[2022-07-31] MEDS: ATORVASTATIN 20 MG TAB PO SCH (21:59)
[2022-07-31] MEDS: INSULIN LANTUS (GLARGINE) 1 /0.01ml (100units/ml) SC SCH (22:01)
[2022-08-01] MEDS: ALBUTEROL SULF 2.5 MG/0.5ML(0.5%) NEB SOLN NEB SCH ×4 (00:03→18:41)
[2022-08-01] MEDS: IPRATROPIUM BROM 0.5 MG/2.5ML INH SOL NEB SCH ×4 (00:03→18:41)
[2022-08-01] MEDS: VANCOMYCIN 1GM/250ML 250 ML IV SCH ×2 (00:24→18:24)
[2022-08-01] MEDS: SODIUM CHLORIDE 0.9% 1,000 ML IV SCH ×3 (04:59→18:26)
[2022-08-01 05:00] VITALS: BP 134/75
[2022-08-01] MEDS: SODIUM CHLOR 0.9% PF (SALINE LOCK) 10ML VIAL/SYR IV SCH ×3 (05:12→21:29)
[2022-08-01] MEDS: NYSTATIN (MOUTH-THROAT) 500,000 UNITS/5 ML SUSP MT SCH ×4 (06:04→21:28)
[2022-08-01] MEDS: ACCU-CHEK COMFORT CURVE STRIP VI SCH ×4 (06:04→21:29)
[2022-08-01] MEDS: MEROPENEM 1GM IVPB 100 ML IV SCH ×2 (06:04→21:29)
[2022-08-01] MEDS: InsuLIN REG 1unit/0.01ml Soln (100units/ml) SC SCH ×4 (06:05→21:28)
[2022-08-01] MEDS: CLOPIDOGREL BISULFATE 75 MG TAB PO SCH (08:50)
[2022-08-01] MEDS: GABAPENTIN 300 MG CAP PO SCH (08:52)
[2022-08-01] MEDS: HYDROcodone-ACET 5/325MG TAB PO PRN ×2 (08:52→21:30)
[2022-08-01] MEDS: dilTIAZem HCL 60 MG TAB PO SCH ×2 (08:52→21:53)
[2022-08-01 09:00] VITALS: BP 137/72
[2022-08-01 11:36] LABS: Hematocrit 45.4 % (36.0-46.0); Hemoglobin 14.9 g/dL (12.2-16.2); Mean Corpuscular Hemoglobin 27.8 pg (28.0-32.0); Mean Corpuscular Hgb Conc. 32.8 g/dL (32.0-36.0); Mean Corpuscular Volume 84.9 fL (80.0-100.0); Red Blood Cells 5.35 10^6/uL (4.0-5.20); Red Cell Distribution Width 14.6 % (11.8-14.3); White Blood Cell 29.1 10^3/uL (4.4-10.8)
[2022-08-01 11:44] LABS: Basophils % (manual) 0 (0.0-2.0); Blast Cells 0; Myelocytes % 0; Promyelocytes % 0; Reactive Lymphocytes 0
[2022-08-01 12:05] LABS: Band Neutrophils % (manual) 6; Eosinophils % (manual) 1 (0-7); Lymphocytes % (manual) 6 (10.0-50.0); Metamyelocytes % 1; Monocytes % (manual) 11 (0-12)
[2022-08-01 12:13] LABS: Albumin 1.4 g/dL (3.4-5.0); Anion Gap 13 (5-15); Blood Urea Nitrogen 29 mg/dL (7-18); Carbon Dioxide 22 mmol/L (21-32); Chloride 87 mmol/L (98-107); Glucose 165 mg/dL (74-106); Potassium 4.6 mmol/L (3.5-5.1); Sodium 122 mmol/L (136-145)
[2022-08-01 12:18] LABS: Alanine Aminotransferase 120 U/L (13-56); Alkaline Phosphatase 116 U/L (45-117); Aspartate Aminotransferase 99 U/L (15-37); BUN/Creatinine Ratio 24.6 (10.0-20.0); Bilirubin, Total 1.1 mg/dL (0.2-1.0); GFR African American 57 mL/min; GFR Non-African American 47 mL/min; Total Protein 5.6 g/dL (6.4-8.2)
[2022-08-01 13:00] VITALS: BP 134/86
[2022-08-01 13:16] LABS: Calcium < 5.0 mg/dL (8.5-10.1)
[2022-08-01] MEDS ORDERED: CALCIUM CHL 100MG/ML 1,000 MG in D5W 5% 100 ML IV ONE (13:30)
[2022-08-01 16:43] VITALS: BP 145/74
[2022-08-01] MEDS: ATORVASTATIN 20 MG TAB PO SCH (21:28)
[2022-08-01] MEDS: INSULIN LANTUS (GLARGINE) 1 /0.01ml (100units/ml) SC SCH (21:28)
[2022-08-01 22:00] VITALS: BP 135/73
[2022-08-02] MEDS: ALBUTEROL SULF 2.5 MG/0.5ML(0.5%) NEB SOLN NEB SCH ×4 (00:11→18:02)
[2022-08-02] MEDS: IPRATROPIUM BROM 0.5 MG/2.5ML INH SOL NEB SCH ×4 (00:11→18:02)
[2022-08-02 05:00] VITALS: BP 134/72
[2022-08-02] MEDS: SODIUM CHLORIDE 0.9% 1,000 ML IV SCH ×3 (05:20→22:20)
[2022-08-02] MEDS ORDERED: VANCOMYCIN 1GM/250ML 250 ML IV SCH (06:00)
[2022-08-02] MEDS: NYSTATIN (MOUTH-THROAT) 500,000 UNITS/5 ML SUSP MT SCH ×4 (06:11→22:19)
[2022-08-02] MEDS: VANCOMYCIN 1GM/250ML 250 ML IV SCH ×2 (06:12→18:42)
[2022-08-02] MEDS: ACCU-CHEK COMFORT CURVE STRIP VI SCH ×4 (06:12→22:20)
[2022-08-02] MEDS: SODIUM CHLOR 0.9% PF (SALINE LOCK) 10ML VIAL/SYR IV SCH ×3 (06:12→22:19)
[2022-08-02] MEDS: InsuLIN REG 1unit/0.01ml Soln (100units/ml) SC SCH ×4 (06:13→22:29)
[2022-08-02 08:00] VITALS: BP 124/63
[2022-08-02 08:37] LABS: Hematocrit 41.1 % (36.0-46.0); Hemoglobin 13.6 g/dL (12.2-16.2); Mean Corpuscular Hemoglobin 28.4 pg (28.0-32.0); Mean Corpuscular Hgb Conc. 33.2 g/dL (32.0-36.0); Mean Corpuscular Volume 85.5 fL (80.0-100.0); Red Cell Distribution Width 14.6 % (11.8-14.3); White Blood Cell 21.9 10^3/uL (4.4-10.8)
[2022-08-02 08:41] LABS: Basophils % (manual) 0 (0.0-2.0); Blast Cells 0; Myelocytes % 0; Promyelocytes % 0; Reactive Lymphocytes 0
[2022-08-02 09:00] VITALS: BP 124/63
[2022-08-02] MEDS ORDERED: SODIUM CHLORIDE 0.9% 1,000 ML IV SCH (09:45)
[2022-08-02 11:25] LABS: Band Neutrophils % (manual) 3; Eosinophils % (manual) 2 (0-7); Lymphocytes % (manual) 12 (10.0-50.0); Metamyelocytes % 1; Monocytes % (manual) 1 (0-12)
[2022-08-02] MEDS: dilTIAZem HCL 60 MG TAB PO SCH ×2 (11:39→22:20)
[2022-08-02] MEDS: GABAPENTIN 300 MG CAP PO SCH (11:39)
[2022-08-02] MEDS: CLOPIDOGREL BISULFATE 75 MG TAB PO SCH (11:40)
[2022-08-02] MEDS ORDERED: MAGNESIUM SULFATE 1GM/100ML 100 ML IV SCH ×2 (12:00→21:45)
[2022-08-02 13:00] VITALS: BP 132/76
[2022-08-02] MEDS: MEROPENEM 1GM IVPB 100 ML IV SCH ×2 (13:34→23:51)
[2022-08-02 14:19] LABS: Albumin 1.4 g/dL (3.4-5.0); BUN/Creatinine Ratio 31.3 (10.0-20.0); Calcium 8.1 mg/dL (8.5-10.1); Magnesium 2.2 mg/dL (1.6-2.6); Potassium 4.2 mmol/L (3.5-5.1)
[2022-08-02 14:24] LABS: Bilirubin, Total 1.2 mg/dL (0.2-1.0); Total Protein 5.2 g/dL (6.4-8.2)
[2022-08-02] MEDS: HYDROcodone-ACET 5/325MG TAB PO PRN ×2 (15:29→22:22)
[2022-08-02 16:48] VITALS: BP 100/43
[2022-08-02] MEDS: MAGNESIUM SULFATE 1GM/100ML 100 ML IV SCH ×2 (17:45→18:30)
[2022-08-02 18:47] LABS: Urine Bacteria FEW /hpf (None Seen); Urine Blood 1+ /uL (Negative); Urine Budding Yeast OCCASIONAL /hpf (None Seen); Urine Mucus FEW (None Seen); Urine Specific Gravity 1.012 (1.001-1.035); Urine WBC 26 /hpf (0 - 5)
[2022-08-02 18:57] LABS: Protein, Urine 35.2 mg/dL (0.0-11.9)
[2022-08-02 19:00] LABS: Creatinine, Urine 46.3 mg/dL (30.0-125.0)
[2022-08-02 22:00] VITALS: BP 152/78
[2022-08-02] MEDS: ATORVASTATIN 20 MG TAB PO SCH (22:19)
[2022-08-02] MEDS: INSULIN LANTUS (GLARGINE) 1 /0.01ml (100units/ml) SC SCH (22:21)
[2022-08-03] VITALS (7 sets, daily range): BP systolic 117–158; BP diastolic 66–81
[2022-08-03] MEDS: VANCOMYCIN 1GM/250ML 250 ML IV SCH (05:36)
[2022-08-03] MEDS: NYSTATIN (MOUTH-THROAT) 500,000 UNITS/5 ML SUSP MT SCH ×4 (06:21→22:10)
[2022-08-03] MEDS: SODIUM CHLOR 0.9% PF (SALINE LOCK) 10ML VIAL/SYR IV SCH ×3 (06:22→23:27)
[2022-08-03] MEDS: ACCU-CHEK COMFORT CURVE STRIP VI SCH ×4 (06:22→22:10)
[2022-08-03] MEDS: InsuLIN REG 1unit/0.01ml Soln (100units/ml) SC SCH ×4 (06:26→22:02)
[2022-08-03] MEDS: IPRATROPIUM BROM 0.5 MG/2.5ML INH SOL NEB SCH ×4 (06:36→18:15)
[2022-08-03] MEDS: ALBUTEROL SULF 2.5 MG/0.5ML(0.5%) NEB SOLN NEB SCH ×4 (06:36→18:15)
[2022-08-03 06:38] LABS: Hematocrit 39.8 % (36.0-46.0); Hemoglobin 13.1 g/dL (12.2-16.2); Mean Corpuscular Hemoglobin 28.3 pg (28.0-32.0); Mean Corpuscular Hgb Conc. 32.8 g/dL (32.0-36.0); Mean Corpuscular Volume 86.2 fL (80.0-100.0); Red Blood Cells 4.62 10^6/uL (4.0-5.20); Red Cell Distribution Width 14.7 % (11.8-14.3); White Blood Cell 17.1 10^3/uL (4.4-10.8)
[2022-08-03 07:08] LABS: Basophils % (manual) 0 (0.0-2.0); Blast Cells 0; Metamyelocytes % 0; Promyelocytes % 0
[2022-08-03 07:13] LABS: Potassium 4.1 mmol/L (3.5-5.1)
[2022-08-03 07:23] LABS: Albumin 1.4 g/dL (3.4-5.0); BUN/Creatinine Ratio 30.2 (10.0-20.0); Bilirubin, Total 1.1 mg/dL (0.2-1.0); Calcium 7.8 mg/dL (8.5-10.1); Total Protein 4.3 g/dL (6.4-8.2)
[2022-08-03 08:33] LABS: Band Neutrophils % (manual) 1; Eosinophils % (manual) 2 (0-7); Lymphocytes % (manual) 17 (10.0-50.0); Monocytes % (manual) 4 (0-12); Myelocytes % 1; Reactive Lymphocytes 2
[2022-08-03] MEDS: SODIUM CHLORIDE 0.9% 1,000 ML IV SCH ×2 (09:15→17:14)
[2022-08-03] MEDS: MEROPENEM 1GM IVPB 100 ML IV SCH (09:17)
[2022-08-03] MEDS: GABAPENTIN 300 MG CAP PO SCH (09:20)
[2022-08-03] MEDS: CLOPIDOGREL BISULFATE 75 MG TAB PO SCH (09:20)
[2022-08-03] MEDS: dilTIAZem HCL 60 MG TAB PO SCH ×2 (09:21→23:34)
[2022-08-03] MEDS: ERGOCALCIFEROL 50,000 UNIT(1.25MG) CAP PO SCH (11:02)
[2022-08-03] MEDS: levoFLOXacin 500MG 100 ML IV SCH (11:02)
[2022-08-03] MEDS: HYDROcodone-ACET 5/325MG TAB PO PRN (20:07)
[2022-08-03] MEDS: ATORVASTATIN 20 MG TAB PO SCH (22:10)
[2022-08-03] MEDS: INSULIN LANTUS (GLARGINE) 1 /0.01ml (100units/ml) SC SCH (22:11)
[2022-08-04] MEDS: IPRATROPIUM BROM 0.5 MG/2.5ML INH SOL NEB SCH ×3 (00:03→18:33)
[2022-08-04] MEDS: ALBUTEROL SULF 2.5 MG/0.5ML(0.5%) NEB SOLN NEB SCH ×3 (00:03→18:33)
[2022-08-04] MEDS ORDERED: VANCOMYCIN 1GM/250ML 250 ML IV SCH (04:00)
[2022-08-04 05:25] VITALS: BP 130/74
[2022-08-04 05:44] LABS: Hematocrit 38.7 % (36.0-46.0); Hemoglobin 12.8 g/dL (12.2-16.2); Mean Corpuscular Hemoglobin 28.4 pg (28.0-32.0); Mean Corpuscular Hgb Conc. 33.1 g/dL (32.0-36.0); Mean Corpuscular Volume 85.5 fL (80.0-100.0); Red Blood Cells 4.53 10^6/uL (4.0-5.20); Red Cell Distribution Width 14.8 % (11.8-14.3)
[2022-08-04 05:49] LABS: Basophils % (manual) 0 (0.0-2.0); Blast Cells 0; Metamyelocytes % 0; Myelocytes % 0; Promyelocytes % 0; Reactive Lymphocytes 0
[2022-08-04 05:51] LABS: Calcium 7.9 mg/dL (8.5-10.1); Potassium 3.8 mmol/L (3.5-5.1)
[2022-08-04 05:53] LABS: BUN/Creatinine Ratio 31.4 (10.0-20.0)
[2022-08-04] MEDS: SODIUM CHLOR 0.9% PF (SALINE LOCK) 10ML VIAL/SYR IV SCH ×3 (06:20→22:03)
[2022-08-04] MEDS: ACCU-CHEK COMFORT CURVE STRIP VI SCH ×4 (06:20→22:05)
[2022-08-04] MEDS: NYSTATIN (MOUTH-THROAT) 500,000 UNITS/5 ML SUSP MT SCH ×4 (06:20→22:03)
[2022-08-04] MEDS: SODIUM CHLORIDE 0.9% 1,000 ML IV SCH (06:20)
[2022-08-04] MEDS: InsuLIN REG 1unit/0.01ml Soln (100units/ml) SC SCH ×4 (06:21→22:16)
[2022-08-04 07:04] LABS: Band Neutrophils % (manual) 10; Eosinophils % (manual) 1 (0-7); Lymphocytes % (manual) 8 (10.0-50.0); Monocytes % (manual) 8 (0-12)
[2022-08-04 09:00] VITALS: BP 137/66
[2022-08-04] MEDS: levoFLOXacin 500MG 100 ML IV SCH (10:20)
[2022-08-04] MEDS: CLOPIDOGREL BISULFATE 75 MG TAB PO SCH (10:21)
[2022-08-04] MEDS: GABAPENTIN 300 MG CAP PO SCH (10:21)
[2022-08-04] MEDS: dilTIAZem HCL 60 MG TAB PO SCH (10:21)
[2022-08-04] MEDS ORDERED: dilTIAZem HCL 60 MG TAB PO ONE (11:00)
[2022-08-04] MEDS ORDERED: ATENOLOL 25 MG TAB PO ONE (11:00)
[2022-08-04 13:00] VITALS: BP 119/75
[2022-08-04] MEDS: VANCOMYCIN 750mg/250ml 250 ML IV SCH (16:39)
[2022-08-04 17:00] VITALS: BP 132/59
[2022-08-04 22:00] VITALS: BP 135/60
[2022-08-04] MEDS ORDERED: dilTIAZem HCL 60 MG TAB PO SCH (22:00)
[2022-08-04] MEDS: ATORVASTATIN 20 MG TAB PO SCH (22:04)
[2022-08-04] MEDS: ATENOLOL 25 MG TAB PO SCH (22:04)
[2022-08-04] MEDS: INSULIN LANTUS (GLARGINE) 1 /0.01ml (100units/ml) SC SCH (22:12)
[2022-08-05] MEDS: ALBUTEROL SULF 2.5 MG/0.5ML(0.5%) NEB SOLN NEB SCH ×7 (00:47→23:22)
[2022-08-05] MEDS: IPRATROPIUM BROM 0.5 MG/2.5ML INH SOL NEB SCH ×7 (00:48→23:22)
[2022-08-05 05:00] VITALS: BP 123/63
[2022-08-05] MEDS: NYSTATIN (MOUTH-THROAT) 500,000 UNITS/5 ML SUSP MT SCH ×4 (06:17→23:13)
[2022-08-05] MEDS: SODIUM CHLOR 0.9% PF (SALINE LOCK) 10ML VIAL/SYR IV SCH ×3 (06:18→23:13)
[2022-08-05] MEDS: ACCU-CHEK COMFORT CURVE STRIP VI SCH ×4 (06:18→23:13)
[2022-08-05] MEDS: InsuLIN REG 1unit/0.01ml Soln (100units/ml) SC SCH ×4 (06:18→23:18)
[2022-08-05 07:22] LABS: BUN/Creatinine Ratio 32.1 (10.0-20.0); Calcium 8.1 mg/dL (8.5-10.1); Potassium 4.1 mmol/L (3.5-5.1)
[2022-08-05 07:26] LABS: Basophils # (auto) 0.1 10 ^3/uL (0-0.2); Basophils % (auto) 0.5 % (0.0-2.0); Eosinophils # (auto) 0.4 10 ^3/uL (0-0.8); Eosinophils % (auto) 2.6 % (0.0-7.0); Hemoglobin 12.6 g/dL (12.2-16.2); Lymphocytes # (auto) 1.3 10 ^3/uL (0.4-5.4); Lymphocytes % (auto) 9.4 % (10.0-50.0); Mean Corpuscular Hemoglobin 28.5 pg (28.0-32.0); Mean Corpuscular Hgb Conc. 31.4 g/dL (32.0-36.0); Mean Corpuscular Volume 90.6 fL (80.0-100.0); Monocytes % (auto) 7.5 % (0.0-12.0); Red Blood Cells 4.42 10^6/uL (4.0-5.20); Red Cell Distribution Width 15.5 % (11.8-14.3); White Blood Cell 13.8 10^3/uL (4.4-10.8)
[2022-08-05 09:01] VITALS: BP 110/56
[2022-08-05] MEDS: CLOPIDOGREL BISULFATE 75 MG TAB PO SCH (09:34)
[2022-08-05] MEDS: levoFLOXacin 500MG 100 ML IV SCH (09:34)
[2022-08-05] MEDS: GABAPENTIN 300 MG CAP PO SCH (09:35)
[2022-08-05] MEDS: ATENOLOL 25 MG TAB PO SCH ×2 (10:00→23:12)
[2022-08-05 12:42] VITALS: BP 102/65
[2022-08-05 14:23] LABS: Hepatitis C Antibody Negative (Negative)
[2022-08-05 16:51] VITALS: BP 147/83
[2022-08-05] MEDS: VANCOMYCIN 750mg/250ml 250 ML IV SCH (16:57)
[2022-08-05 22:00] VITALS: BP 128/65
[2022-08-05] MEDS: ATORVASTATIN 20 MG TAB PO SCH (23:12)
[2022-08-05] MEDS: INSULIN LANTUS (GLARGINE) 1 /0.01ml (100units/ml) SC SCH (23:17)
[2022-08-06 05:00] VITALS: BP 130/76
[2022-08-06 05:54] LABS: Calcium 8.2 mg/dL (8.5-10.1); Potassium 3.9 mmol/L (3.5-5.1)
[2022-08-06] MEDS: SODIUM CHLOR 0.9% PF (SALINE LOCK) 10ML VIAL/SYR IV SCH ×3 (05:55→23:04)
[2022-08-06] MEDS: NYSTATIN (MOUTH-THROAT) 500,000 UNITS/5 ML SUSP MT SCH ×4 (05:55→23:04)
[2022-08-06 06:04] LABS: Albumin 1.3 g/dL (3.4-5.0); BUN/Creatinine Ratio 28.1 (10.0-20.0); Bilirubin, Total 0.6 mg/dL (0.2-1.0); Total Protein 4.7 g/dL (6.4-8.2)
[2022-08-06] MEDS: ACCU-CHEK COMFORT CURVE STRIP VI SCH ×4 (06:43→23:07)
[2022-08-06] MEDS: InsuLIN REG 1unit/0.01ml Soln (100units/ml) SC SCH ×4 (06:43→23:09)
[2022-08-06] MEDS: ALBUTEROL SULF 2.5 MG/0.5ML(0.5%) NEB SOLN NEB SCH ×3 (06:54→19:23)
[2022-08-06] MEDS: IPRATROPIUM BROM 0.5 MG/2.5ML INH SOL NEB SCH ×3 (06:54→19:23)
[2022-08-06 07:49] LABS: Basophils # (auto) 0.1 10 ^3/uL (0-0.2); Basophils % (auto) 0.6 % (0.0-2.0); Eosinophils # (auto) 0.5 10 ^3/uL (0-0.8); Eosinophils % (auto) 3.7 % (0.0-7.0); Hematocrit 37.2 % (36.0-46.0); Hemoglobin 12.4 g/dL (12.2-16.2); Lymphocytes # (auto) 1.2 10 ^3/uL (0.4-5.4); Lymphocytes % (auto) 9.1 % (10.0-50.0); Mean Corpuscular Hemoglobin 28.8 pg (28.0-32.0); Mean Corpuscular Hgb Conc. 33.3 g/dL (32.0-36.0); Mean Corpuscular Volume 86.4 fL (80.0-100.0); Monocytes % (auto) 7.5 % (0.0-12.0); Neutrophils # (auto) 10.2 10 ^3/uL (1.6-8.6); Neutrophils % (auto) 79.1 % (37.0-80.0); Nucleated Red Blood Cells % 0.1 %; Red Cell Distribution Width 14.9 % (11.8-14.3); White Blood Cell 12.9 10^3/uL (4.4-10.8)
[2022-08-06 08:02] LABS: Calcium 8.1 mg/dL (8.5-10.1)
[2022-08-06 08:05] LABS: BUN/Creatinine Ratio 28.7 (10.0-20.0)
[2022-08-06 09:00] VITALS: BP 142/70
[2022-08-06] MEDS ORDERED: POTASSIUM EFFERVESENT TAB 25 MEQ PO ONE (09:15)
[2022-08-06] MEDS: CLOPIDOGREL BISULFATE 75 MG TAB PO SCH (09:16)
[2022-08-06] MEDS: GABAPENTIN 300 MG CAP PO SCH (09:16)
[2022-08-06] MEDS: ATENOLOL 25 MG TAB PO SCH ×2 (09:18→23:05)
[2022-08-06 09:52] LABS: Potassium 3.7 mmol/L (3.5-5.1)
[2022-08-06] MEDS: FUROSEMIDE 20 MG/2 ML VIAL IV SCH (10:51)
[2022-08-06 13:00] VITALS: BP 129/66
[2022-08-06 16:55] VITALS: BP 127/64
[2022-08-06] MEDS: VANCOMYCIN 750mg/250ml 250 ML IV SCH (16:59)
[2022-08-06 22:00] VITALS: BP 110/57
[2022-08-06] MEDS: CARBAMIDE PEROXIDE 6.5% OTIC(EAR) SOLN 15ML EACH EAR SCH (23:04)
[2022-08-06] MEDS: ATORVASTATIN 20 MG TAB PO SCH (23:06)
[2022-08-06] MEDS: INSULIN LANTUS (GLARGINE) 1 /0.01ml (100units/ml) SC SCH (23:08)
[2022-08-06 23:30] VITALS: BP 110/57
[2022-08-07] MEDS: ALBUTEROL SULF 2.5 MG/0.5ML(0.5%) NEB SOLN NEB SCH ×4 (00:24→17:50)
[2022-08-07] MEDS: IPRATROPIUM BROM 0.5 MG/2.5ML INH SOL NEB SCH ×4 (00:25→17:50)
[2022-08-07 05:00] VITALS: BP 136/63
[2022-08-07 05:34] LABS: Albumin 1.3 g/dL (3.4-5.0); Potassium 3.6 mmol/L (3.5-5.1)
[2022-08-07 05:39] LABS: Bilirubin, Total 0.6 mg/dL (0.2-1.0); Total Protein 4.8 g/dL (6.4-8.2)
[2022-08-07] MEDS: SODIUM CHLOR 0.9% PF (SALINE LOCK) 10ML VIAL/SYR IV SCH ×3 (05:51→23:15)
[2022-08-07] MEDS: ACCU-CHEK COMFORT CURVE STRIP VI SCH ×4 (05:51→23:10)
[2022-08-07] MEDS: InsuLIN REG 1unit/0.01ml Soln (100units/ml) SC SCH ×4 (05:51→23:17)
[2022-08-07] MEDS: NYSTATIN (MOUTH-THROAT) 500,000 UNITS/5 ML SUSP MT SCH ×4 (05:52→23:08)
[2022-08-07 08:25] VITALS: BP 121/67
[2022-08-07] MEDS: CARBAMIDE PEROXIDE 6.5% OTIC(EAR) SOLN 15ML EACH EAR SCH ×2 (11:06→23:08)
[2022-08-07] MEDS: FUROSEMIDE 20 MG/2 ML VIAL IV SCH (11:06)
[2022-08-07] MEDS: GABAPENTIN 300 MG CAP PO SCH (11:07)
[2022-08-07] MEDS: ATENOLOL 25 MG TAB PO SCH ×2 (11:07→23:10)
[2022-08-07] MEDS: CLOPIDOGREL BISULFATE 75 MG TAB PO SCH (11:07)
[2022-08-07 13:00] VITALS: BP 115/70
[2022-08-07] MEDS: VANCOMYCIN 750mg/250ml 250 ML IV SCH (16:12)
[2022-08-07 17:00] VITALS: BP 114/58
[2022-08-07 22:00] VITALS: BP 129/60
[2022-08-07] MEDS: ATORVASTATIN 20 MG TAB PO SCH (23:09)
[2022-08-07] MEDS: INSULIN LANTUS (GLARGINE) 1 /0.01ml (100units/ml) SC SCH (23:17)
[2022-08-08] MEDS: ALBUTEROL SULF 2.5 MG/0.5ML(0.5%) NEB SOLN NEB SCH ×5 (00:45→23:43)
[2022-08-08] MEDS: IPRATROPIUM BROM 0.5 MG/2.5ML INH SOL NEB SCH ×5 (00:45→23:44)
[2022-08-08 05:00] VITALS: BP 114/59
[2022-08-08 05:39] LABS: Basophils # (auto) 0.2 10 ^3/uL (0-0.2); Eosinophils # (auto) 0.5 10 ^3/uL (0-0.8); Eosinophils % (auto) 4.8 % (0.0-7.0); Hematocrit 35.7 % (36.0-46.0); Hemoglobin 12.2 g/dL (12.2-16.2); Lymphocytes # (auto) 1.3 10 ^3/uL (0.4-5.4); Lymphocytes % (auto) 12.9 % (10.0-50.0); Mean Corpuscular Hemoglobin 28.7 pg (28.0-32.0); Mean Corpuscular Hgb Conc. 34.2 g/dL (32.0-36.0); Monocytes # (auto) 0.8 10 ^3/uL (0-1.3); Monocytes % (auto) 8.1 % (0.0-12.0); Neutrophils # (auto) 7.3 10 ^3/uL (1.6-8.6); Neutrophils % (auto) 72.2 % (37.0-80.0); Nucleated Red Blood Cells % 0.2 %; Red Blood Cells 4.25 10^6/uL (4.0-5.20); Red Cell Distribution Width 14.6 % (11.8-14.3); White Blood Cell 10.1 10^3/uL (4.4-10.8)
[2022-08-08 05:58] LABS: BUN/Creatinine Ratio 29.1 (10.0-20.0); Calcium 8.1 mg/dL (8.5-10.1); Potassium 3.7 mmol/L (3.5-5.1)
[2022-08-08] MEDS: SODIUM CHLOR 0.9% PF (SALINE LOCK) 10ML VIAL/SYR IV SCH ×3 (06:25→21:38)
[2022-08-08] MEDS: NYSTATIN (MOUTH-THROAT) 500,000 UNITS/5 ML SUSP MT SCH ×4 (06:25→21:38)
[2022-08-08] MEDS: ACCU-CHEK COMFORT CURVE STRIP VI SCH ×4 (06:26→21:41)
[2022-08-08] MEDS: InsuLIN REG 1unit/0.01ml Soln (100units/ml) SC SCH ×4 (06:28→21:40)
[2022-08-08 08:10] VITALS: BP 130/59
[2022-08-08] MEDS: FUROSEMIDE 20 MG/2 ML VIAL IV SCH (10:16)
[2022-08-08] MEDS: CARBAMIDE PEROXIDE 6.5% OTIC(EAR) SOLN 15ML EACH EAR SCH ×2 (10:16→21:38)
[2022-08-08] MEDS: CLOPIDOGREL BISULFATE 75 MG TAB PO SCH (10:19)
[2022-08-08] MEDS: GABAPENTIN 300 MG CAP PO SCH (10:19)
[2022-08-08] MEDS: ATENOLOL 25 MG TAB PO SCH ×2 (10:20→21:39)
[2022-08-08 12:38] VITALS: BP 122/76
[2022-08-08] MEDS: VANCOMYCIN 750mg/250ml 250 ML IV SCH (15:59)
[2022-08-08 17:12] VITALS: BP 109/57
[2022-08-08] MEDS: ATORVASTATIN 20 MG TAB PO SCH (21:38)
[2022-08-08] MEDS: INSULIN LANTUS (GLARGINE) 1 /0.01ml (100units/ml) SC SCH (21:42)
[2022-08-08 22:00] VITALS: BP 116/52
[2022-08-09 05:00] VITALS: BP 136/80
[2022-08-09] MEDS: SODIUM CHLOR 0.9% PF (SALINE LOCK) 10ML VIAL/SYR IV SCH ×3 (05:10→21:50)
[2022-08-09] MEDS: NYSTATIN (MOUTH-THROAT) 500,000 UNITS/5 ML SUSP MT SCH ×4 (06:19→21:47)
[2022-08-09] MEDS: ACCU-CHEK COMFORT CURVE STRIP VI SCH ×4 (06:23→21:48)
[2022-08-09] MEDS: InsuLIN REG 1unit/0.01ml Soln (100units/ml) SC SCH ×4 (06:27→21:53)
[2022-08-09] MEDS: IPRATROPIUM BROM 0.5 MG/2.5ML INH SOL NEB SCH ×4 (06:50→23:38)
[2022-08-09] MEDS: ALBUTEROL SULF 2.5 MG/0.5ML(0.5%) NEB SOLN NEB SCH ×4 (06:50→23:38)
[2022-08-09 09:00] VITALS: BP 133/68
[2022-08-09] MEDS: ATENOLOL 25 MG TAB PO SCH ×2 (09:21→21:47)
[2022-08-09] MEDS: CARBAMIDE PEROXIDE 6.5% OTIC(EAR) SOLN 15ML EACH EAR SCH ×2 (09:21→21:48)
[2022-08-09] MEDS: CLOPIDOGREL BISULFATE 75 MG TAB PO SCH (09:21)
[2022-08-09] MEDS: GABAPENTIN 300 MG CAP PO SCH (09:21)
[2022-08-09] MEDS: FUROSEMIDE 20 MG/2 ML VIAL IV SCH ×2 (09:21→16:53)
[2022-08-09 13:00] VITALS: BP 131/72
[2022-08-09] MEDS ORDERED: POLYETHYLENE GLYCOL 17 GM PWDR PO SCH (13:52)
[2022-08-09] MEDS: VANCOMYCIN 750mg/250ml 250 ML IV SCH (16:54)
[2022-08-09 17:00] VITALS: BP 126/72
[2022-08-09] MEDS: ATORVASTATIN 20 MG TAB PO SCH (21:47)
[2022-08-09] MEDS: INSULIN LANTUS (GLARGINE) 1 /0.01ml (100units/ml) SC SCH (21:52)
[2022-08-09 22:00] VITALS: BP 120/56
[2022-08-10 05:00] VITALS: BP 127/65
[2022-08-10] MEDS: SODIUM CHLOR 0.9% PF (SALINE LOCK) 10ML VIAL/SYR IV SCH ×2 (05:57→16:43)
[2022-08-10] MEDS: NYSTATIN (MOUTH-THROAT) 500,000 UNITS/5 ML SUSP MT SCH ×2 (05:57→11:32)
[2022-08-10] MEDS: ACCU-CHEK COMFORT CURVE STRIP VI SCH ×2 (06:10→11:26)
[2022-08-10] MEDS: InsuLIN REG 1unit/0.01ml Soln (100units/ml) SC SCH ×2 (06:10→11:27)
[2022-08-10] MEDS: IPRATROPIUM BROM 0.5 MG/2.5ML INH SOL NEB SCH ×2 (06:47→11:28)
[2022-08-10] MEDS: ALBUTEROL SULF 2.5 MG/0.5ML(0.5%) NEB SOLN NEB SCH ×2 (06:47→11:28)
[2022-08-10] MEDS: CLOPIDOGREL BISULFATE 75 MG TAB PO SCH (08:58)
[2022-08-10] MEDS: ERGOCALCIFEROL 50,000 UNIT(1.25MG) CAP PO SCH (08:58)
[2022-08-10] MEDS: FUROSEMIDE 20 MG/2 ML VIAL IV SCH (08:58)
[2022-08-10] MEDS: GABAPENTIN 300 MG CAP PO SCH (08:59)
[2022-08-10] MEDS: ATENOLOL 25 MG TAB PO SCH (08:59)
[2022-08-10 09:11] VITALS: BP 138/73
[2022-08-10 09:15] VITALS: BP 138/73
[2022-08-10] MEDS: CARBAMIDE PEROXIDE 6.5% OTIC(EAR) SOLN 15ML EACH EAR SCH (10:00)
[2022-08-10 11:50] LABS: Basophils # (auto) 0.1 10 ^3/uL (0-0.2); Basophils % (auto) 1.4 % (0.0-2.0); Eosinophils # (auto) 0.5 10 ^3/uL (0-0.8); Eosinophils % (auto) 7.6 % (0.0-7.0); Hematocrit 37.7 % (36.0-46.0); Hemoglobin 12.4 g/dL (12.2-16.2); Lymphocytes % (auto) 14.9 % (10.0-50.0); Mean Corpuscular Hemoglobin 27.8 pg (28.0-32.0); Mean Corpuscular Hgb Conc. 32.8 g/dL (32.0-36.0); Mean Corpuscular Volume 84.8 fL (80.0-100.0); Monocytes # (auto) 0.7 10 ^3/uL (0-1.3); Monocytes % (auto) 10.6 % (0.0-12.0); Neutrophils # (auto) 4.4 10 ^3/uL (1.6-8.6); Neutrophils % (auto) 65.5 % (37.0-80.0); Nucleated Red Blood Cells % 0.1 %; Red Blood Cells 4.45 10^6/uL (4.0-5.20); Red Cell Distribution Width 14.8 % (11.8-14.3); White Blood Cell 6.7 10^3/uL (4.4-10.8)
[2022-08-10 12:21] LABS: Anion Gap 3 (5-15); BUN/Creatinine Ratio 25.9 (10.0-20.0); Blood Urea Nitrogen 21 mg/dL (7-18); Calcium 7.7 mg/dL (8.5-10.1); Carbon Dioxide 32 mmol/L (21-32); Chloride 101 mmol/L (98-107); GFR African American 87 mL/min; GFR Non-African American 72 mL/min; Glucose 168 mg/dL (74-106); Potassium 3.2 mmol/L (3.5-5.1); Sodium 136 mmol/L (136-145)
[2022-08-10 12:23] VITALS: BP 123/66
[2022-08-10 12:51] VITALS: BP 123/66
== END 2022-08-10 15:28 | DRG 871 ==
LOC: EDUNIT# 10:00 → ER 10:00 → MERGE 17:45 → TELE 17:45 → TELE-CENTR 07-26 22:54
PROVIDERS: ADMIT Nurse Practitioner Family; ATTEND Nurse Practitioner Acute Care
PROC: 05HF33Z Insertion of Infusion Device into Left Cephalic Vein, Percutaneous Approach (ICD-10-PCS; principal; 2022-08-09)
PROC: B54NZZA Ultrasonography of Left Upper Extremity Veins, Guidance (ICD-10-PCS; 2022-08-09)
DX: A41.9 Sepsis, unspecified organism (principal); I50.43 Acute on chronic combined systolic (congestive) and diastolic (congestive) heart failure; J96.20 Acute and chronic respiratory failure, unspecified whether with hypoxia or hypercapnia; N17.0 Acute kidney failure with tubular necrosis; J15.212 Pneumonia due to Methicillin resistant Staphylococcus aureus; J44.0 Chronic obstructive pulmonary disease with (acute) lower respiratory infection; E87.1 Hypo-osmolality and hyponatremia; I13.0 Hypertensive heart and chronic kidney disease with heart failure and stage 1 through stage 4 chronic kidney disease, or unspecified chronic kidney disease; J44.1 Chronic obstructive pulmonary disease with (acute) exacerbation; Z68.43 Body mass index [BMI] 50.0-59.9, adult; E78.5 Hyperlipidemia, unspecified; Z96.653 Presence of artificial knee joint, bilateral; E83.51 Hypocalcemia; E66.01 Morbid (severe) obesity due to excess calories; E11.22 Type 2 diabetes mellitus with diabetic chronic kidney disease; Z20.822 Contact with and (suspected) exposure to COVID-19; D69.6 Thrombocytopenia, unspecified; E88.09 Other disorders of plasma-protein metabolism, not elsewhere classified; H91.90 Unspecified hearing loss, unspecified ear; N18.9 Chronic kidney disease, unspecified; Z79.02 Long term (current) use of antithrombotics/antiplatelets; Z79.4 Long term (current) use of insulin; Z79.899 Other long term (current) drug therapy; Z80.49 Family history of malignant neoplasm of other genital organs; Z86.73 Personal history of transient ischemic attack (TIA), and cerebral infarction without residual deficits; Z90.710 Acquired absence of both cervix and uterus; Z99.81 Dependence on supplemental oxygen; Z87.891 Personal history of nicotine dependence
CPT/HCPCS: 36415; 36600; 71045; 71250; 76604; 76775; 80048; 80053; 80202; 81001; 82306; 82550; 82565; 82570; 82607; 82805; 82962; 83605; 83735; 83880; 83935; 83970; 84100; 84156; 84300; 84484; 85007; 85025; 85027; 85610; 85730; 86803; 87040; 87070; 87077; 87081; 87086; 87088; 87186; 87205; 87340; 87426; 93005; 93306; 94640; 96365; 96372; 96375; 97110; 97116; 97163; 97530; 99291; 99292; C9113; G0378; J0696; J1815; J1956; J2185; J3490; J7060

== ENCOUNTER 2022-09-27 13:56 | Inpatient (IN) | payer OTHER ==
[~2022-09-27] VITALS: Ht 154.9 cm; Wt 120.0 kg
[~2022-09-27 13:56] MED LIST changes: -AZIT250T8 PO; -FUR20T PO; +GABA-1250 PO; -GABA300C10 PO; -LOSA-39 PO; -METH4PAK PO
[2022-09-27 14:51] LABS: Basophils # (auto) 0.1 10 ^3/uL (0-0.2); Basophils % (auto) 1.2 % (0.0-2.0); Eosinophils # (auto) 0.2 10 ^3/uL (0-0.8); Eosinophils % (auto) 2.7 % (0.0-7.0); Hemoglobin 12.4 g/dL (12.2-16.2); Lymphocytes # (auto) 1.1 10 ^3/uL (0.4-5.4); Lymphocytes % (auto) 15.5 % (10.0-50.0); Mean Corpuscular Hgb Conc. 32.6 g/dL (32.0-36.0); Mean Corpuscular Volume 88.9 fL (80.0-100.0); Monocytes # (auto) 0.6 10 ^3/uL (0-1.3); Monocytes % (auto) 8.1 % (0.0-12.0); Neutrophils # (auto) 5.1 10 ^3/uL (1.6-8.6); Neutrophils % (auto) 72.5 % (37.0-80.0); Nucleated Red Blood Cells % 0.1 %; Red Blood Cells 4.27 10^6/uL (4.0-5.20); Red Cell Distribution Width 17.2 % (11.8-14.3); White Blood Cell 7.1 10^3/uL (4.4-10.8)
[2022-09-27 15:20] LABS: Lactic Acid w/Reflex 2.1 mmol/L (0.4-2.0)
[2022-09-27 15:45] LABS: Calcium 8.3 mg/dL (8.5-10.1); Magnesium 1.9 mg/dL (1.6-2.6)
[2022-09-27] MEDS ORDERED: FUROSEMIDE 40 MG/4 ML VIAL IV ONE (15:45)
[2022-09-27 15:48] LABS: BUN/Creatinine Ratio 12.2 (10.0-20.0); Total Protein 5.7 g/dL (6.4-8.2)
[2022-09-27] MEDS ORDERED: IOHEXOL 350 MG/ML 100ML IJ ONE (16:59)
[2022-09-27] MEDS ORDERED: POTASSIUM CHL 20 Meq TABLET PO ONE (19:00)
[2022-09-27] MEDS ORDERED: ACETAMINOPHEN 325 MG TAB PO PRN (22:45)
[2022-09-27] MEDS ORDERED: DEXTROSE (50%) 50ML SYRG IV PRN (22:45)
[2022-09-27] MEDS ORDERED: NITROGLYCERIN 0.4 MG SL TAB SL PRN (22:45)
[2022-09-27] MEDS ORDERED: MORPHINE SULFATE INJ 2 MG/ml SYRG IV PRN (22:45)
[2022-09-27] MEDS ORDERED: ONDANSETRON HCL 4 MG/2 ML VIAL IV PRN (22:45)
[2022-09-27 22:47] VITALS: BP 162/73
[2022-09-28 03:43] LABS: Urine Bacteria FEW /hpf (None Seen); Urine Blood Negative /uL (Negative); Urine Specific Gravity 1.034 (1.001-1.035); Urine WBC 2 /hpf (0 - 5)
[2022-09-28] MEDS ORDERED: FUROSEMIDE 20 MG/2 ML VIAL IV SCH (06:00)
[2022-09-28 06:16] LABS: Basophils # (auto) 0.1 10 ^3/uL (0-0.2); Basophils % (auto) 0.9 % (0.0-2.0); Eosinophils # (auto) 0.3 10 ^3/uL (0-0.8); Eosinophils % (auto) 3.9 % (0.0-7.0); Hematocrit 36.5 % (36.0-46.0); Hemoglobin 12.1 g/dL (12.2-16.2); Lymphocytes # (auto) 1.8 10 ^3/uL (0.4-5.4); Lymphocytes % (auto) 24.4 % (10.0-50.0); Mean Corpuscular Hemoglobin 29.5 pg (28.0-32.0); Mean Corpuscular Hgb Conc. 33.3 g/dL (32.0-36.0); Mean Corpuscular Volume 88.7 fL (80.0-100.0); Monocytes # (auto) 0.6 10 ^3/uL (0-1.3); Monocytes % (auto) 8.8 % (0.0-12.0); Neutrophils # (auto) 4.5 10 ^3/uL (1.6-8.6); Nucleated Red Blood Cells % 0.1 %; Red Blood Cells 4.11 10^6/uL (4.0-5.20); White Blood Cell 7.2 10^3/uL (4.4-10.8)
[2022-09-28 06:30] LABS: Albumin 2.9 g/dL (3.4-5.0); BUN/Creatinine Ratio 12.7 (10.0-20.0); Bilirubin, Total 1.1 mg/dL (0.2-1.0); Calcium 8.2 mg/dL (8.5-10.1); Total Protein 5.8 g/dL (6.4-8.2)
[2022-09-28] MEDS: ACCU-CHEK COMFORT CURVE STRIP VI SCH ×4 (06:58→22:34)
[2022-09-28] MEDS: InsuLIN REG 1unit/0.01ml Soln (100units/ml) SC SCH ×4 (06:59→22:40)
[2022-09-28 07:00] LABS: Potassium 2.8 mmol/L (3.5-5.1)
[2022-09-28] MEDS ORDERED: POTASSIUM CHL 20 Meq TABLET PO ONE (07:15)
[2022-09-28] MEDS: LOSARTAN POTASSIUM 50 MG TAB PO SCH (08:46)
[2022-09-28] MEDS: ENOXAPARIN SOD 30 MG/0.3 ML SYRINGE SC SCH (08:46)
[2022-09-28] MEDS: ASPirin 81 mg TAB PO SCH (08:47)
[2022-09-28] MEDS ORDERED: ENOXAPARIN SOD 40 MG/0.4 ML SYRINGE SC SCH (10:00)
[2022-09-28] MEDS ORDERED: CARVEDILOL 12.5 MG TAB PO SCH (10:00)
[2022-09-28] MEDS ORDERED: CLOPIDOGREL BISULFATE 75 MG TAB PO SCH (10:00)
[2022-09-28] MEDS: POTASSIUM CHL 20MEQ/100ML 100 ML IV SCH ×2 (10:24→12:33)
[2022-09-28 10:49] LABS: Cholesterol 120 mg/dL (< 200); HDL Cholesterol 70 mg/dL (40-59); LDL Cholesterol 45 mg/dL (< 100); Triglycerides 72 mg/dL (< 150)
[2022-09-28] MEDS ORDERED: POTASSIUM EFFERVESENT TAB 25 MEQ PO ONE (17:00)
[2022-09-28] MEDS: FUROSEMIDE 40 MG/4 ML VIAL IV SCH (17:08)
[2022-09-28 22:00] VITALS: BP 154/58
[2022-09-28] MEDS ORDERED: ATORVASTATIN 20 MG TAB PO SCH (22:00)
[2022-09-28] MEDS ORDERED: dilTIAZem HCL 60 MG TAB PO SCH (22:00)
[2022-09-28] MEDS: ATORVASTATIN 20 MG TAB PO SCH (22:31)
[2022-09-28] MEDS: CARVEDILOL 12.5 MG TAB PO SCH (22:32)
[2022-09-29 00:16] VITALS: BP 154/58
[2022-09-29 05:07] VITALS: BP 143/66
[2022-09-29] MEDS: FUROSEMIDE 40 MG/4 ML VIAL IV SCH ×2 (06:07→17:30)
[2022-09-29] MEDS: EMPAGLIFLOZIN 10 MG TAB PO SCH (06:08)
[2022-09-29] MEDS: InsuLIN REG 1unit/0.01ml Soln (100units/ml) SC SCH ×4 (06:20→22:32)
[2022-09-29] MEDS: ACCU-CHEK COMFORT CURVE STRIP VI SCH ×4 (06:20→22:26)
[2022-09-29 06:36] LABS: Potassium 3.8 mmol/L (3.5-5.1)
[2022-09-29 06:43] LABS: Albumin 2.5 g/dL (3.4-5.0); Bilirubin, Total 1.1 mg/dL (0.2-1.0); Calcium 8.1 mg/dL (8.5-10.1); Total Protein 5.3 g/dL (6.4-8.2)
[2022-09-29 07:08] LABS: Basophils # (auto) 0.1 10 ^3/uL (0-0.2); Basophils % (auto) 1.1 % (0.0-2.0); Eosinophils # (auto) 0.3 10 ^3/uL (0-0.8); Hematocrit 35.2 % (36.0-46.0); Hemoglobin 11.7 g/dL (12.2-16.2); Lymphocytes # (auto) 1.4 10 ^3/uL (0.4-5.4); Lymphocytes % (auto) 23.8 % (10.0-50.0); Mean Corpuscular Hemoglobin 29.4 pg (28.0-32.0); Mean Corpuscular Hgb Conc. 33.3 g/dL (32.0-36.0); Mean Corpuscular Volume 88.2 fL (80.0-100.0); Monocytes # (auto) 0.7 10 ^3/uL (0-1.3); Monocytes % (auto) 12.1 % (0.0-12.0); Neutrophils # (auto) 3.3 10 ^3/uL (1.6-8.6); Nucleated Red Blood Cells % 0.2 %; Red Blood Cells 3.99 10^6/uL (4.0-5.20); White Blood Cell 5.7 10^3/uL (4.4-10.8)
[2022-09-29 09:00] VITALS: BP 136/73
[2022-09-29] MEDS: LOSARTAN POTASSIUM 50 MG TAB PO SCH (09:09)
[2022-09-29] MEDS: ASPirin 81 mg TAB PO SCH (09:09)
[2022-09-29] MEDS: CLOPIDOGREL BISULFATE 75 MG TAB PO SCH (09:09)
[2022-09-29] MEDS: POTASSIUM CHL 10 Meq TABLET PO SCH (09:10)
[2022-09-29] MEDS: CARVEDILOL 12.5 MG TAB PO SCH ×2 (09:11→22:25)
[2022-09-29] MEDS: ENOXAPARIN SOD 30 MG/0.3 ML SYRINGE SC SCH (10:00)
[2022-09-29] MEDS ORDERED: ATENOLOL 50 MG TAB PO SCH (10:00)
[2022-09-29] MEDS ORDERED: MAGNESIUM SULFATE 1GM/100ML 100 ML IV ONE (12:15)
[2022-09-29 13:43] VITALS: BP 111/60
[2022-09-29 16:37] VITALS: BP 120/59
[2022-09-29 22:00] VITALS: BP 120/55
[2022-09-29] MEDS: ATORVASTATIN 20 MG TAB PO SCH (22:25)
[2022-09-30 05:00] VITALS: BP 132/72
[2022-09-30] MEDS: EMPAGLIFLOZIN 10 MG TAB PO SCH (06:22)
[2022-09-30] MEDS: FUROSEMIDE 40 MG/4 ML VIAL IV SCH (06:23)
[2022-09-30] MEDS: ACCU-CHEK COMFORT CURVE STRIP VI SCH ×3 (06:26→17:00)
[2022-09-30] MEDS: InsuLIN REG 1unit/0.01ml Soln (100units/ml) SC SCH ×3 (06:29→17:00)
[2022-09-30] MEDS: ALBUTEROL SULF 2.5 MG/0.5ML(0.5%) NEB SOLN NEB PRN ×2 (06:29→16:51)
[2022-09-30 09:00] VITALS: BP 101/47
[2022-09-30] MEDS: CLOPIDOGREL BISULFATE 75 MG TAB PO SCH (09:32)
[2022-09-30] MEDS: ASPirin 81 mg TAB PO SCH (09:32)
[2022-09-30] MEDS: POTASSIUM CHL 10 Meq TABLET PO SCH (09:32)
[2022-09-30] MEDS: LOSARTAN POTASSIUM 50 MG TAB PO SCH (09:38)
[2022-09-30] MEDS: CARVEDILOL 12.5 MG TAB PO SCH (09:39)
[2022-09-30] MEDS: ENOXAPARIN SOD 30 MG/0.3 ML SYRINGE SC SCH (10:00)
[2022-09-30 13:00] VITALS: BP 113/54
[2022-09-30] MEDS ORDERED: FURO1TAB31 PO (13:54)
[2022-09-30] MEDS ORDERED: POTA8TAB38 PO (13:54)
[2022-09-30] MEDS ORDERED: EMPA1TAB PO (13:54)
[2022-09-30 16:07] VITALS: BP 112/56
[2022-09-30 16:59] VITALS: BP 130/73
== END 2022-09-30 17:40 | disposition home or self-care (01) | DRG 291 ==
LOC: ER 13:56 → TELE 22:39 → TELE-WESTW 09-28 21:40
PROVIDERS: ADMIT Nurse Practitioner; ATTEND Nurse Practitioner Acute Care
DX: I11.0 Hypertensive heart disease with heart failure (principal); E43 Unspecified severe protein-calorie malnutrition; I50.43 Acute on chronic combined systolic (congestive) and diastolic (congestive) heart failure; J96.21 Acute and chronic respiratory failure with hypoxia; J91.8 Pleural effusion in other conditions classified elsewhere; Z68.43 Body mass index [BMI] 50.0-59.9, adult; E11.9 Type 2 diabetes mellitus without complications; E87.6 Hypokalemia; I87.8 Other specified disorders of veins; Z96.653 Presence of artificial knee joint, bilateral; Z20.822 Contact with and (suspected) exposure to COVID-19; E66.9 Obesity, unspecified; Z79.899 Other long term (current) drug therapy; Z80.49 Family history of malignant neoplasm of other genital organs; Z86.73 Personal history of transient ischemic attack (TIA), and cerebral infarction without residual deficits; Z87.01 Personal history of pneumonia (recurrent); Z90.710 Acquired absence of both cervix and uterus
CPT/HCPCS: 36415; 71045; 71275; 80053; 80061; 81001; 82962; 83036; 83605; 83735; 83880; 84132; 84443; 84484; 85025; 85379; 87040; 87426; 93005; 93925; 93970; 94640; 99291; G0378; J1815; J3480

== ENCOUNTER 2022-10-30 13:46 | Emergency (ER) | payer OTHER ==
[~2022-10-30] VITALS: Ht 154.9 cm; Wt 100.0 kg
[~2022-10-30 13:46] MED LIST changes: +EMPA1TAB PO; +FURO1TAB31 PO; +POTA8TAB38 PO
[2022-10-30 14:36] LABS: Basophils # (auto) 0.1 10 ^3/uL (0-0.2); Basophils % (auto) 0.7 % (0.0-2.0); Eosinophils # (auto) 0.2 10 ^3/uL (0-0.8); Eosinophils % (auto) 2.1 % (0.0-7.0); Hematocrit 40.3 % (36.0-46.0); Lymphocytes # (auto) 1.3 10 ^3/uL (0.4-5.4); Lymphocytes % (auto) 14.3 % (10.0-50.0); Mean Corpuscular Hemoglobin 28.4 pg (28.0-32.0); Mean Corpuscular Hgb Conc. 32.2 g/dL (32.0-36.0); Mean Corpuscular Volume 88.3 fL (80.0-100.0); Monocytes # (auto) 0.7 10 ^3/uL (0-1.3); Monocytes % (auto) 7.4 % (0.0-12.0); Neutrophils # (auto) 6.7 10 ^3/uL (1.6-8.6); Neutrophils % (auto) 75.5 % (37.0-80.0); Nucleated Red Blood Cells % 0.1 %; Red Blood Cells 4.56 10^6/uL (4.0-5.20); Red Cell Distribution Width 15.5 % (11.8-14.3); White Blood Cell 8.8 10^3/uL (4.4-10.8)
[2022-10-30] MEDS ORDERED: ADENOSINE 6 MG/2 ML INJ IV ONE (15:00)
[2022-10-30 15:08] LABS: Calcium 8.7 mg/dL (8.5-10.1); Potassium 3.4 mmol/L (3.5-5.1)
[2022-10-30 15:14] LABS: Albumin 2.8 g/dL (3.4-5.0); BUN/Creatinine Ratio 17.4 (10.0-20.0); Bilirubin, Total 0.8 mg/dL (0.2-1.0); Total Protein 5.8 g/dL (6.4-8.2)
[2022-10-30] MEDS ORDERED: AMIODARONE 450mg/250ml AE 250 ML IV SCH ×2 (16:30→22:30)
[2022-10-30] MEDS ORDERED: ONDANSETRON HCL 4 MG/2 ML VIAL IV ONE (18:30)
[2022-10-30] MEDS ORDERED: MORPHINE SULFATE INJ 2 MG/ml SYRG IV ONE (18:30)
[2022-10-30] MEDS ORDERED: ENOXAPARIN SOD 80 MG/0.8ML SYRINGE SC ONE (21:30)
[2022-10-31 00:46] VITALS: BP 155/60
== END 2022-10-31 01:19 | disposition short-term general hospital (02) ==
LOC: ER 13:46
DX: I47.1 Supraventricular tachycardia (principal); I11.0 Hypertensive heart disease with heart failure; I50.9 Heart failure, unspecified; J44.9 Chronic obstructive pulmonary disease, unspecified; E11.9 Type 2 diabetes mellitus without complications; Z90.710 Acquired absence of both cervix and uterus; Z86.73 Personal history of transient ischemic attack (TIA), and cerebral infarction without residual deficits
CPT/HCPCS: 36415; 71045; 80053; 83880; 84484; 85025; 93005; 96365; 96366; 96372; 96375; 99291; J0282; J1650; J2270; J2405

== ENCOUNTER 2022-11-02 01:06 | Emergency (ER) | payer OTHER ==
[~2022-11-02] VITALS: Ht 157.5 cm; Wt 182.0 kg
[2022-11-02 01:59] LABS: Basophils # (auto) 0.1 10 ^3/uL (0-0.2); Basophils % (auto) 1.2 % (0.0-2.0); Eosinophils # (auto) 0.3 10 ^3/uL (0-0.8); Eosinophils % (auto) 3.3 % (0.0-7.0); Hematocrit 39.9 % (36.0-46.0); Hemoglobin 13.1 g/dL (12.2-16.2); Lymphocytes # (auto) 1.5 10 ^3/uL (0.4-5.4); Lymphocytes % (auto) 16.8 % (10.0-50.0); Mean Corpuscular Hgb Conc. 32.8 g/dL (32.0-36.0); Mean Corpuscular Volume 88.5 fL (80.0-100.0); Monocytes # (auto) 0.8 10 ^3/uL (0-1.3); Monocytes % (auto) 8.6 % (0.0-12.0); Neutrophils # (auto) 6.4 10 ^3/uL (1.6-8.6); Neutrophils % (auto) 70.1 % (37.0-80.0); Red Cell Distribution Width 15.7 % (11.8-14.3); White Blood Cell 9.1 10^3/uL (4.4-10.8)
[2022-11-02 02:31] LABS: Chloride 103 mmol/L (98-107); Potassium 3.9 mmol/L (3.5-5.1); Sodium 139 mmol/L (136-145)
[2022-11-02 02:36] LABS: INR 1.34 (0.9-1.15); Partial Thromboplastin Time 41.5 SEC (24.5-34.5)
[2022-11-02 02:46] LABS: Albumin 2.9 g/dL (3.4-5.0); Anion Gap 7 (5-15); BUN/Creatinine Ratio 17.8 (10.0-20.0); Blood Urea Nitrogen 23 mg/dL (7-18); Calcium 8.9 mg/dL (8.5-10.1); Carbon Dioxide 29 mmol/L (21-32); GFR African American 51 mL/min; GFR Non-African American 42 mL/min; Glucose 242 mg/dL (74-106); Magnesium 1.8 mg/dL (1.6-2.6)
[2022-11-02 02:48] LABS: Alanine Aminotransferase 17 U/L (13-56); Alkaline Phosphatase 124 U/L (45-117); Aspartate Aminotransferase 20 U/L (15-37); Bilirubin, Total 0.6 mg/dL (0.2-1.0); Total Protein 6.3 g/dL (6.4-8.2)
[2022-11-02 05:54] VITALS: BP 168/85
== END 2022-11-02 05:58 | disposition home or self-care (01) ==
LOC: ER 01:06
DX: R07.89 Other chest pain (principal); I11.0 Hypertensive heart disease with heart failure; I50.9 Heart failure, unspecified; J44.9 Chronic obstructive pulmonary disease, unspecified; E11.9 Type 2 diabetes mellitus without complications; Z90.710 Acquired absence of both cervix and uterus; Z86.73 Personal history of transient ischemic attack (TIA), and cerebral infarction without residual deficits
CPT/HCPCS: 36415; 71045; 80053; 83735; 83880; 84484; 85025; 85610; 85730; 93005